=== PATIENT | male | born 1975 | race American Indian/Alaskan Native ===

== ENCOUNTER 2017-04-20 23:15 | Emergency (ER) | payer MEDICAID ==
[2017-04-21 00:06] VITALS: BP 141/101
--- NOTE | 2017-04-21 00:30 | Emergency Department Report ---
ED ENT HPI - General Chief complaint: Dental/Oral Stated complaint: TOOTHACHE Time Seen by Provider: 04/21/17 00:20 Source: patient Mode of arrival: Ambulatory Limitations: No Limitations - History of Present Illness Initial comments: This is a 41-year-old male nontoxic, well nourished in appearance, no acute signs of distress presents to the ED with c/o of acute on chronic toothache. Patient stated that 2 days ago developed toothache again. Patient denies any facial swelling, drooling, fever, chills, nausea, vomiting, headache or stiff neck. Denies hoarseness. Denies any chest pain or shortness of breath. Patient denies any significant past medical history. Allergies includes NSAIDs. MD complaint: tooth pain -: days(s) (2) Location: tooth # (15) 1 - toothache Severity: mild Severity scale (0 -10): 8 Quality: aching Consistency: constant Improves with: none Worsens with: none Associated Symptoms: gum swelling, toothache. denies: fever, cough, pain with swallowing, sore throat, tinnitus, hearing loss, discharge from ear, rhinorrhea - Related Data Home Medications Medication Instructions Recorded Confirmed Last Taken Depakote 0 mg PO DAILY 12/07/15 12/07/15 Unknown Quetiapine Fumarate [SEROquel XR] 150 mg PO QDAY 12/07/15 12/07/15 Unknown hydrOXYzine PAMOATE [Vistaril] 25 mg PO Q6HR PRN 12/07/15 12/07/15 Unknown Previous Rx's Medication Instructions Recorded Last Taken Type HYDROcodone/APAP 5-325 [[place] 1 each PO Q6HR PRN #15 tablet 03/04/15 Unknown Rx 5/325] Lisinopril [Zestril TAB] 20 mg PO QDAY #30 tablet 12/07/15 Unknown Rx Loperamide [Imodium] 2 mg PO Q2HR PRN #20 capsule 12/07/15 Unknown Rx traMADol [Ultram 50 MG tab] 50 mg PO Q6HR PRN #20 tablet 12/07/15 Unknown Rx Acetaminophen [Acetaminophen 8 650 mg PO Q8H PRN #30 tablet.er 04/21/17 Unknown Rx Hour] Amoxicillin/K Clav Tab [Augmentin 1 tab PO Q12HR #20 tab 04/21/17 Unknown Rx 875 mg] Chlorhexidine Mouthwash [Peridex] 15 ml MM BID 10 Days bottle 04/21/17 Unknown Rx Allergies Allergy/AdvReac Type Severity Reaction Status Date / Time ibuprofen [From Motrin] Allergy Itching Verified 11/20/12 15:54 NSAIDS (Non-Steroidal Allergy Itching Verified 10/23/15 00:05 Anti-Inflamma ED Dental HPI - General Chief complaint: Dental/Oral Stated complaint: TOOTHACHE Time Seen by Provider: 04/21/17 00:20 Source: patient Mode of arrival: Ambulatory Limitations: No Limitations - Related Data Home Medications Medication Instructions Recorded Confirmed Last Taken Depakote 0 mg PO DAILY 12/07/15 12/07/15 Unknown Quetiapine Fumarate [SEROquel XR] 150 mg PO QDAY 12/07/15 12/07/15 Unknown hydrOXYzine PAMOATE [Vistaril] 25 mg PO Q6HR PRN 12/07/15 12/07/15 Unknown Previous Rx's Medication Instructions Recorded Last Taken Type HYDROcodone/APAP 5-325 [[place] 1 each PO Q6HR PRN #15 tablet 03/04/15 Unknown Rx 5/325] Lisinopril [Zestril TAB] 20 mg PO QDAY #30 tablet 12/07/15 Unknown Rx Loperamide [Imodium] 2 mg PO Q2HR PRN #20 capsule 12/07/15 Unknown Rx traMADol [Ultram 50 MG tab] 50 mg PO Q6HR PRN #20 tablet 12/07/15 Unknown Rx Acetaminophen [Acetaminophen 8 650 mg PO Q8H PRN #30 tablet.er 04/21/17 Unknown Rx Hour] Amoxicillin/K Clav Tab [Augmentin 1 tab PO Q12HR #20 tab 04/21/17 Unknown Rx 875 mg] Chlorhexidine Mouthwash [Peridex] 15 ml MM BID 10 Days bottle 04/21/17 Unknown Rx Allergies Allergy/AdvReac Type Severity Reaction Status Date / Time ibuprofen [From Motrin] Allergy Itching Verified 11/20/12 15:54 NSAIDS (Non-Steroidal Allergy Itching Verified 10/23/15 00:05 Anti-Inflamma ED Review of Systems ROS: Stated complaint: TOOTHACHE Other details as noted in HPI Constitutional: denies: chills, fever Eyes: denies: eye pain, eye discharge, vision change ENT: dental pain. denies: ear pain, throat pain Respiratory: denies: cough, shortness of breath, wheezing Cardiovascular: denies: chest pain, palpitations Endocrine: no symptoms reported Gastrointestinal: denies: abdominal pain, nausea, diarrhea Genitourinary: denies: urgency, dysuria Musculoskeletal: denies: back pain, joint swelling, arthralgia Skin: denies: rash, lesions Neurological: denies: headache, weakness, paresthesias Psychiatric: denies: anxiety, depression Hematological/Lymphatic: denies: easy bleeding, easy bruising ED Past Medical Hx - Past Medical History Previous Medical History?: Yes Hx Hypertension: Yes Hx Congestive Heart Failure: No Hx Diabetes: No Hx Deep Vein Thrombosis: (Unknown) Hx Psychiatric Treatment: Yes (Bipolar, Schizophrenia, Anxiety) Hx Asthma: No Hx COPD: No Hx HIV: No Additional medical history: Hernia; back pain - Surgical History Past Surgical History?: Yes Hx Pacemaker: No Hx Internal Defibrillator: No Hx Appendectomy: Yes Additional Surgical History: perforated bowel repair October 2014; fx R hip 2011 - Social History Smoking Status: Never Smoker Substance Use Type: None - Medications Home Medications: Home Medications Medication Instructions Recorded Confirmed Last Taken Type HYDROcodone/APAP 5-325 [[place] 1 each PO Q6HR PRN #15 tablet 03/04/15 12/07/15 Unknown Rx 5/325] Depakote 0 mg PO DAILY 12/07/15 12/07/15 Unknown History Lisinopril [Zestril TAB] 20 mg PO QDAY #30 tablet 12/07/15 Unknown Rx Loperamide [Imodium] 2 mg PO Q2HR PRN #20 capsule 12/07/15 Unknown Rx Quetiapine Fumarate [SEROquel XR] 150 mg PO QDAY 12/07/15 12/07/15 Unknown History hydrOXYzine PAMOATE [Vistaril] 25 mg PO Q6HR PRN 12/07/15 12/07/15 Unknown History traMADol [Ultram 50 MG tab] 50 mg PO Q6HR PRN #20 tablet 12/07/15 Unknown Rx Acetaminophen [Acetaminophen 8 650 mg PO Q8H PRN #30 tablet.er 02/22/18 Unknown Rx Hour] Amoxicillin/K Clav Tab [Augmentin 1 tab PO Q12HR #20 tab 04/21/17 Unknown Rx 875 mg] Chlorhexidine Mouthwash [Peridex] 15 ml MM BID 10 Days bottle 04/21/17 Unknown Rx ED Physical Exam - General Limitations: No Limitations General appearance: alert, in no apparent distress - Head Head exam: Present: atraumatic, normocephalic - Eye Eye exam: Present: normal appearance Pupils: Present: normal accommodation - ENT ENT exam: Present: normal orophraynx, mucous membranes moist, TM's normal bilaterally, normal external ear exam - Expanded ENT Exam Expanded Ear exam: Present: normal external inspection Mouth exam: Present: normal external inspection, tongue normal. Absent: drooling, trismus, muffled voice, tongue elevation, laceration Teeth exam: Present: dental caries, fractured tooth # (15), dental tenderness # (15), gingival enlargement, other (No facial swelling or abscess noted. ) Throat exam: Positive: normal inspection, other (Uvula midline.). Negative: tonsillar erythema, tonsillomegaly, tonsillar exudate, R peritonsillar mass, L peritonsillar mass - Neck Neck exam: Present: normal inspection, full ROM. Absent: tenderness, meningismus, lymphadenopathy, thyromegaly - Respiratory Respiratory exam: Present: normal lung sounds bilaterally. Absent: respiratory distress, wheezes, rales, rhonchi, stridor, chest wall tenderness, accessory muscle use, decreased breath sounds, prolonged expiratory - Cardiovascular Cardiovascular Exam: Present: regular rate, normal rhythm, normal heart sounds. Absent: irregular rhythm, systolic murmur, diastolic murmur, rubs, gallop - GI/Abdominal GI/Abdominal exam: Present: soft, normal bowel sounds. Absent: distended, tenderness, guarding, rebound, rigid, diminished bowel sounds - Rectal Rectal exam: Present: deferred - Extremities Exam Extremities exam: Present: normal inspection - Back Exam Back exam: Present: normal inspection - Neurological Exam Neurological exam: Present: alert, oriented X3 - Psychiatric Psychiatric exam: Present: normal affect, normal mood - Skin Skin exam: Present: warm, dry, intact, normal color. Absent: rash ED Course Vital Signs 04/21/17 00:02 Temperature 98 F Pulse Rate 97 H Respiratory 18 Rate Blood Pressure 141/101 O2 Sat by Pulse 98 Oximetry - Reevaluation(s) Reevaluation #1: 04/21/17 00:28 Patient is speaking in full sentences with no signs of distress noted. Critical care attestation.: If time is entered above; I have spent that time in minutes in the direct care of this critically ill patient, excluding procedure time. ED Disposition Clinical Impression: Dental caries, Gingivitis Disposition: - TO HOME OR SELFCARE Is pt being admited?: No Does the pt Need Aspirin: No Condition: Stable Additional Instructions: Follow-up with a dentist in 3-5 days or if symptoms worsen and continue return to emergency room as soon as possible. Prescriptions: Acetaminophen [Acetaminophen 8 Hour] 650 mg PO Q8H PRN #30 tablet.er PRN Reason: Pain Amoxicillin/K Clav Tab [Augmentin 875 mg] 1 tab PO Q12HR #20 tab Chlorhexidine Mouthwash [Peridex] 15 ml MM BID 10 Days bottle Referrals: LEDY ARMAS MD [Primary Care Provider] - 3-5 Days [facility] [Outside] - 3-5 Days Forms: Work/School Release Form(ED)
[2017-04-21] MEDS ORDERED: TYLENOL PO ONE (00:43)
== END 2017-04-21 01:00 | disposition home or self-care (01) ==
LOC: ED 23:15
DX: K02.9 Dental caries, unspecified (principal); K05.10 Chronic gingivitis, plaque induced; I10 Essential (primary) hypertension; F31.9 Bipolar disorder, unspecified; F20.9 Schizophrenia, unspecified; F41.9 Anxiety disorder, unspecified; Z90.49 Acquired absence of other specified parts of digestive tract
CPT/HCPCS: 99282

== ENCOUNTER 2017-06-12 12:53 | Emergency (ER) | payer MEDICAID ==
[2017-06-12 13:11] VITALS: BP 151/101
--- NOTE | 2017-06-12 15:01 | Emergency Department Report ---
ED Back Pain/Injury HPI - General Chief Complaint: Extremity Injury, Upper Stated Complaint: RIB PAIN Time Seen by Provider: 06/12/17 14:47 Source: patient Limitations: No Limitations - History of Present Illness Initial Comments: This is a 41 y.o. male that presents with bilateral flank pain that is radiating to ribs bilateral for 4 days. Patient reports taking medication prescribed from therapist but nothing helped. States pain is 8/10 on pain scale and radiates from bilateral flanks to ribs and intermittent. States pain is sharp with movement it is worse. He feels better when propped on multiple pillows. Denies recent injury, fever, frequency, urgency, or exposure to STD. MD Complaint: back pain -: days(s) (4) Similar Symptoms Previously: No Place: home Radiation: flank (Bilateral) Severity: moderate Severity scale (0 -10): 8 Quality: sharp, aching Consistency: intermittent Improves With: immobilization, sitting upright Worsens With: movement Context: unknown Associated Symptoms: denies: confusion, weakness, chest pain, numbness, difficulty walking, cough, difficulty urinating, diaphoresis, incontinence, fever/chills, constipation, headaches, abdominal pain, loss of appetite, malaise , nausea/vomiting, rash, seizure, shortness of breath, syncope - Related Data Home Medications Medication Instructions Recorded Confirmed Last Taken Depakote 0 mg PO DAILY 12/07/15 12/07/15 Unknown Quetiapine Fumarate [SEROquel XR] 150 mg PO QDAY 12/07/15 12/07/15 Unknown hydrOXYzine PAMOATE [Vistaril] 25 mg PO Q6HR PRN 12/07/15 12/07/15 Unknown Previous Rx's Medication Instructions Recorded Last Taken Type HYDROcodone/APAP 5-325 [[place] 1 each PO Q6HR PRN #15 tablet 03/04/15 Unknown Rx 5/325] Lisinopril [Zestril TAB] 20 mg PO QDAY #30 tablet 12/07/15 Unknown Rx Loperamide [Imodium] 2 mg PO Q2HR PRN #20 capsule 12/07/15 Unknown Rx traMADol [Ultram 50 MG tab] 50 mg PO Q6HR PRN #20 tablet 12/07/15 Unknown Rx Acetaminophen [Acetaminophen 8 650 mg PO Q8H PRN #30 tablet.er 04/21/17 Unknown Rx Hour] Amoxicillin/K Clav Tab [Augmentin 1 tab PO Q12HR #20 tab 04/21/17 Unknown Rx 875 mg] Chlorhexidine Mouthwash [Peridex] 15 ml MM BID 10 Days bottle 04/21/17 Unknown Rx tiZANidine [Zanaflex] 4 mg PO TID PRN #20 tablet 06/12/17 Unknown Rx traMADol [Ultram 50 MG tab] 50 mg PO Q6HR PRN #15 tablet 06/12/17 Unknown Rx Allergies Allergy/AdvReac Type Severity Reaction Status Date / Time ibuprofen [From Motrin] Allergy Itching Verified 11/20/12 15:54 NSAIDS (Non-Steroidal Allergy Itching Verified 10/23/15 00:05 Anti-Inflamma ED Review of Systems ROS: Stated complaint: RIB PAIN Other details as noted in HPI Constitutional: denies: chills, fever Respiratory: denies: cough, shortness of breath, wheezing Cardiovascular: denies: chest pain, palpitations Gastrointestinal: denies: abdominal pain, nausea, diarrhea Genitourinary: denies: urgency, dysuria, frequency Musculoskeletal: back pain (bilateral flank pain radiating to ribs). denies: joint swelling, arthralgia Neurological: denies: headache, weakness, paresthesias Psychiatric: denies: anxiety, depression ED Past Medical Hx - Past Medical History Hernia; back pain Family history: no significant family history ED Back Pain Physical Exam - Exam General: Vital signs noted. No distress. Alert and acting appropriately. Back/Abdomen: Yes Flank Tenderness (bilateral), No Abdominal Tenderness, No Perithoracic Tenderness, No Perilumbar Tenderness, No Sacroiliac Tenderness, No Straight Leg Raise Pain Neuro: Yes Normal Sensation, Yes Normal DTR's, Yes Normal Gait, No Motor Weakness ED Course Vital Signs 06/12/17 13:09 Temperature 97.9 F Pulse Rate 72 Respiratory 18 Rate Blood Pressure 151/101 Ed Back Pain Tests - Tests Tests: Normal UA ED Medical Decision Making - Medical Decision Making This is a 41 y.o. male presents with bilateral flank pain that is radiating to ribs. History of chronic back pain. He was seeing pain management but have not found a place to f/u with in [facility]. Patient was examined by me. Obtained UA, normal results. Physical findings susceptible of muscle strain of bilateral muscles. No radiograph ordered. Patient informed of results. Plan discussed with patient to discharge home and treat outpatient. He agrees with ER plan. Patient discharged home in stable condition. Start ibuprofen and tizanidine. Follow up with PCP in 2-3 days for referral to pain management. Critical care attestation.: If time is entered above; I have spent that time in minutes in the direct care of this critically ill patient, excluding procedure time. ED Disposition Clinical Impression: Strain of muscle and tendon of back wall of thorax, initial encounter Disposition: TO HOME OR SELFCARE Is pt being admited?: No Does the pt Need Aspirin: No Condition: Stable Instructions: Muscle Strain (ED) Additional Instructions: Rest Use ice or heat on affected area for 20 minutes and off for 2 hours. Take pain medication as needed for pain. Don't drive or operate heavy machinery while taking muscle relaxers because they may cause drowsiness. Follow up with Primary Care Provider in 2-3 days. Prescriptions: tiZANidine [Zanaflex] 4 mg PO TID PRN #20 tablet PRN Reason: Muscle Spasm traMADol [Ultram 50 MG tab] 50 mg PO Q6HR PRN #15 tablet PRN Reason: Pain Referrals: [facility] [Outside] - 3-5 Days [facility] [Outside] - 3-5 Days [facility] [Outside] - 3-5 Days Time of Disposition: 16:04 Print Language: CROATIAN
[2017-06-12 15:28] LABS: Bilirubin,Urine NEG (Negative); Blood,Urine NEG (Negative); Color,Urine Straw (Yellow); Protein,Urine <15 mg/dL mg/dL (Negative); Urobilinogen,Urine < 2.0 mg/dL (<2.0); WBC,Urine < 1.0 /HPF (0.0-6.0)
== END 2017-06-12 16:55 | disposition home or self-care (01) ==
LOC: ED 12:53
DX: S29.012A Strain of muscle and tendon of back wall of thorax, initial encounter (principal); Z88.6 Allergy status to analgesic agent; Z88.8 Allergy status to other drugs, medicaments and biological substances; X58.XXXA Exposure to other specified factors, initial encounter; Y93.89 Activity, other specified; Y92.89 Other specified places as the place of occurrence of the external cause; Y99.8 Other external cause status
CPT/HCPCS: 81001; 99283

== ENCOUNTER 2018-12-13 15:38 | Emergency (ER) | payer MEDICAID ==
--- NOTE | 2018-12-13 16:13 | Emergency Department Report ---
Blank Doc - Documentation Documentation: 43-year-old male that presents with dysuria and dental pain. This initial assessment/diagnostic orders/clinical plan/treatment(s) is/are subject to change based on patient's health status, clinical progression and re- assessment by fellow clinical providers in the ED. Further treatment and workup at subsequent clinical providers discretion. Patient/guardians urged not to elope from the ED as their condition may be serious if not clinically assessed and managed. Initial orders include: 1- Patient sent to [facility] for further evaluation and treatment 2- UA/GC
[2018-12-13 17:57] LABS: Bilirubin,Urine NEG (Negative); Blood,Urine NEG (Negative); Color,Urine Yellow (Yellow); Mucus,Urine FEW /HPF; Protein,Urine <15 mg/dL mg/dL (Negative); Urobilinogen,Urine < 2.0 mg/dL (<2.0)
[2018-12-13 17:59] LABS: WBC,Urine < 1.0 /HPF (0.0-6.0)
--- NOTE | 2018-12-13 20:20 | Emergency Department Report ---
ED General Adult HPI - General Chief complaint: Dental/Oral Stated complaint: TOOTHACHE/DIFFICULTY URINATING Time Seen by Provider: 12/13/18 15:43 Source: patient Mode of arrival: Ambulatory Limitations: No Limitations - History of Present Illness Initial comments: Patient is a 43-year-old male presents emergency room with complaints of left upper dental pain that began 4 days ago. He states he has not seen a dentist in a year and last time had had 2 teeth pulled. He denies any fever, nausea, vomiting, diarrhea, chills. denies any facial swelling. Patient states that he also presents the emergency department with complaints of a "funny feeling while urinating." States that he just wants to have routine STD testing. He denies any penile discharge, testicular pain, edema, abdominal pain, urinary retention, lesions/blisters, any other symptoms. He states he has a past medical history of chronic back pain. - Related Data Home Medications Medication Instructions Recorded Confirmed Last Taken Depakote 0 mg PO DAILY 12/07/15 12/07/15 Unknown Quetiapine Fumarate [SEROquel XR] 150 mg PO QDAY 12/07/15 12/07/15 Unknown hydrOXYzine PAMOATE [Vistaril] 25 mg PO Q6HR PRN 12/07/15 12/07/15 Unknown Previous Rx's Medication Instructions Recorded Last Taken Type HYDROcodone/APAP 5-325 [[place] 1 each PO Q6HR PRN #15 tablet 03/04/15 Unknown Rx 5/325] Lisinopril [Zestril TAB] 20 mg PO QDAY #30 tablet 12/07/15 Unknown Rx Loperamide [Imodium] 2 mg PO Q2HR PRN #20 capsule 12/07/15 Unknown Rx traMADol [Ultram 50 MG tab] 50 mg PO Q6HR PRN #20 tablet 12/07/15 Unknown Rx Acetaminophen [Acetaminophen 8 650 mg PO Q8H PRN #30 tablet.er 04/21/17 Unknown Rx Hour] Amoxicillin/K Clav Tab [Augmentin 1 tab PO Q12HR #20 tab 04/21/17 Unknown Rx 875 mg] Chlorhexidine Mouthwash [Peridex] 15 ml MM BID 10 Days bottle 04/21/17 Unknown Rx tiZANidine [Zanaflex 4mg TAB] 4 mg PO TID PRN #20 tablet 06/12/17 Unknown Rx traMADol [Ultram 50 MG tab] 50 mg PO Q6HR PRN #15 tablet 06/12/17 Unknown Rx HYDROcodone/APAP 5-325 [[place] 1 each PO Q8H #10 tablet 12/24/17 Unknown Rx 5-325 mg TAB] Penicillin Vk [Veetids TAB] 250 mg PO QID #28 tablet 12/24/17 Unknown Rx Acetaminophen [Acetaminophen 8 650 mg PO Q8HR PRN #14 tablet.er 12/13/18 Unknown Rx Hour] Penicillin Vk [Veetids TAB] 500 mg PO QID 7 Days #56 tablet 12/13/18 Unknown Rx Allergies Allergy/AdvReac Type Severity Reaction Status Date / Time ibuprofen [From Motrin] Allergy Itching Verified 11/20/12 15:54 NSAIDS (Non-Steroidal Allergy Itching Verified 10/23/15 00:05 Anti-Inflamma ED Review of Systems ROS: Stated complaint: TOOTHACHE/DIFFICULTY URINATING Other details as noted in HPI Comment: All other systems reviewed and negative ED Past Medical Hx - Past Medical History Previous Medical History?: Yes Hx Hypertension: Yes Hx Congestive Heart Failure: No Hx Diabetes: No Hx Deep Vein Thrombosis: (Unknown) Hx Psychiatric Treatment: Yes (Bipolar, Schizophrenia, Anxiety) Hx Asthma: No Hx COPD: No Hx HIV: No Additional medical history: Hernia; back pain - Surgical History Past Surgical History?: Yes Hx Pacemaker: No Hx Internal Defibrillator: No Hx Appendectomy: Yes Additional Surgical History: perforated bowel repair October 2014; fx R hip. facial plates placed after jaw fx - Social History Smoking Status: Current Every Day Smoker Substance Use Type: Alcohol - Medications Home Medications: Home Medications Medication Instructions Recorded Confirmed Last Taken Type HYDROcodone/APAP 5-325 [[place] 1 each PO Q6HR PRN #15 tablet 03/04/15 12/07/15 Unknown Rx 5/325] Depakote 0 mg PO DAILY 12/07/15 12/07/15 Unknown History Lisinopril [Zestril TAB] 20 mg PO QDAY #30 tablet 12/07/15 Unknown Rx Loperamide [Imodium] 2 mg PO Q2HR PRN #20 capsule 12/07/15 Unknown Rx Quetiapine Fumarate [SEROquel XR] 150 mg PO QDAY 12/07/15 12/07/15 Unknown History hydrOXYzine PAMOATE [Vistaril] 25 mg PO Q6HR PRN 12/07/15 12/07/15 Unknown History traMADol [Ultram 50 MG tab] 50 mg PO Q6HR PRN #20 tablet 12/07/15 Unknown Rx Acetaminophen [Acetaminophen 8 650 mg PO Q8H PRN #30 tablet.er 04/21/17 Unknown Rx Hour] Amoxicillin/K Clav Tab [Augmentin 1 tab PO Q12HR #20 tab 04/21/17 Unknown Rx 875 mg] Chlorhexidine Mouthwash [Peridex] 15 ml MM BID 10 Days bottle 04/21/17 Unknown Rx tiZANidine [Zanaflex 4mg TAB] 4 mg PO TID PRN #20 tablet 06/12/17 Unknown Rx traMADol [Ultram 50 MG tab] 50 mg PO Q6HR PRN #15 tablet 06/12/17 Unknown Rx HYDROcodone/APAP 5-325 [[place] 1 each PO Q8H #10 tablet 12/24/17 Unknown Rx 5-325 mg TAB] Penicillin Vk [Veetids TAB] 250 mg PO QID #28 tablet 12/24/17 Unknown Rx Acetaminophen [Acetaminophen 8 650 mg PO Q8HR PRN #14 tablet.er 12/13/18 Unknown Rx Hour] Penicillin Vk [Veetids TAB] 500 mg PO QID 7 Days #56 tablet 12/13/18 Unknown Rx ED Physical Exam - General Limitations: No Limitations General appearance: alert, in no apparent distress - Head Head exam: Present: atraumatic, normocephalic - Eye Eye exam: Present: normal appearance, PERRL, EOMI - ENT ENT exam: Present: normal orophraynx, mucous membranes moist, other (very poor dentition, several missing teeth, cracked tooth present to the left upper side with small area of edema to the gum, no dental abscess, no fluctuance, no facial cellulitis) - Respiratory Respiratory exam: Present: normal lung sounds bilaterally. Absent: respiratory distress, wheezes, rales, rhonchi, stridor, chest wall tenderness, accessory muscle use, decreased breath sounds, prolonged expiratory - Cardiovascular Cardiovascular Exam: Present: regular rate, normal rhythm, normal heart sounds. Absent: systolic murmur, diastolic murmur, rubs, gallop - Neurological Exam Neurological exam: Present: alert, oriented X3 - Psychiatric Psychiatric exam: Present: normal affect, normal mood - Skin Skin exam: Present: warm, dry, intact ED Course Vital Signs 12/13/18 12/13/18 15:42 20:33 Temperature 97.9 F Pulse Rate 87 80 Respiratory 16 16 Rate Blood Pressure 138/96 Blood Pressure 156/107 [Left] O2 Sat by Pulse 98 100 Oximetry ED Medical Decision Making - Medical Decision Making Patient is a 43-year-old male presents emergency room with complaints of left upper dental pain that began 4 days ago. He states he has not seen a dentist in a year and last time had had 2 teeth pulled. He denies any fever, nausea, vomiting, diarrhea, chills. denies any facial swelling. Patient states that he also presents the emergency department with complaints of a "funny feeling while urinating." States that he just wants to have routine STD testing. He denies any penile discharge, testicular pain, edema, abdominal pain, urinary retention, lesions/blisters, any other symptoms. He states he has a past medical history of chronic back pain. VSS. on exam: very poor dentition, several missing teeth, cracked tooth present to the left upper side with small area of edema to the gum, no dental abscess, no fluctuance, no facial cellulitis, no dental abscess at this time, appears to be early dental infection. pt placed on abx and given prescription for tylenol. advised to take medication as prescribed. UA is normal no signs of UTI. pt will be referred to the health department or PCP for STD panel as there is no emergent need for STD testing, no abd pain, no testicular pain/edema, no fever chills, no N/V. advised pt to Please take medication as prescribed. Please follow-up with a dentist in the next 2-3 days. it is very important you follow-up with a dentist for permanent solution. given a list of community dental clinics. Please follow-up with the [facility] or primary care clinic for a full STD panel. return to the emergency room for any new or worsening symptoms. - Differential Diagnosis dental infection, dental abscess, gingivitis, peridonitis, cracked tooth Critical care attestation.: If time is entered above; I have spent that time in minutes in the direct care of this critically ill patient, excluding procedure time. ED Disposition Clinical Impression: Concern about STD in male without diagnosis, Cracked tooth, Dental infection Disposition: DC-01 TO HOME OR SELFCARE Is pt being admited?: No Does the pt Need Aspirin: No Condition: Stable Instructions: Sexually Transmitted Diseases (ED), Safe Sex (ED), Dental Caries (ED) Additional Instructions: Please take medication as prescribed. Please follow-up with a dentist in the next 2-3 days. it is very important you follow-up with a dentist for permanent solution. given a list of community dental clinics. Please follow-up with the [facility] or primary care clinic for a full STD panel. return to the emergency room for any new or worsening symptoms. Prescriptions: Acetaminophen [Acetaminophen 8 Hour] 650 mg PO Q8HR PRN #14 tablet.er PRN Reason: pain Penicillin Vk [Veetids TAB] 500 mg PO QID 7 Days #56 tablet Referrals: [facility] [Outside] - 2-3 Days [facility] [Outside] - 2-3 Days Forms: Work/School Release Form(ED) Time of Disposition: 20:19 Print Language: DOMINICAN
[2018-12-13 20:33] VITALS: BP 156/107
== END 2018-12-13 20:33 | disposition home or self-care (01) ==
LOC: ED 15:38
DX: K03.81 Cracked tooth (principal); K04.7 Periapical abscess without sinus; R39.198 Other difficulties with micturition; I10 Essential (primary) hypertension; F31.9 Bipolar disorder, unspecified; F20.9 Schizophrenia, unspecified; F41.9 Anxiety disorder, unspecified; F17.200 Nicotine dependence, unspecified, uncomplicated; Z71.1 Person with feared health complaint in whom no diagnosis is made; Z79.899 Other long term (current) drug therapy; Z90.89 Acquired absence of other organs; Z88.6 Allergy status to analgesic agent
CPT/HCPCS: 81001; 87086

== ENCOUNTER 2019-04-16 15:09 | Emergency (ER) | payer MEDICAID ==
--- NOTE | 2019-04-16 16:03 | Emergency Department Report ---
ED Psych HPI - General Chief Complaint: Psych Stated Complaint: SUICIDAL Time Seen by Provider: 04/16/19 15:45 Source: patient, EMS Mode of arrival: Stretcher - History of Present Illness Initial Comments: Patient is a 43-year-old male presents emergency room with complaints of a "nervous breakdown and depression." He states that today he "blacked out mentally" and he was sitting there with a knife in his hand. He states that he has done this before and scratched himself all over. He denies actually cutting himself today. He denies any homicidal ideations. He endorses auditory and visual hallucinations but states they are nonthreatening. He states he has been to a psychiatric facility in the past. Patient has a past medical history of chronic pain, hypertension, hyperlipidemia, depression, bipolar, schizophrenia. He has an allergy to NSAIDs. - Related Data Home Medications Medication Instructions Recorded Confirmed Last Taken Depakote 0 mg PO DAILY 12/07/15 12/07/15 Unknown Quetiapine Fumarate [SEROquel XR] 150 mg PO QDAY 12/07/15 12/07/15 Unknown hydrOXYzine PAMOATE [Vistaril] 25 mg PO Q6HR PRN 12/07/15 12/07/15 Unknown Previous Rx's Medication Instructions Recorded Last Taken Type HYDROcodone/APAP 5-325 [[place] 1 each PO Q6HR PRN #15 tablet 03/04/15 Unknown Rx 5/325] Loperamide [Imodium] 2 mg PO Q2HR PRN #20 capsule 12/07/15 Unknown Rx lisinopriL [Zestril TAB] 20 mg PO QDAY #30 tablet 12/07/15 Unknown Rx traMADoL [Ultram 50 MG tab] 50 mg PO Q6HR PRN #20 tablet 12/07/15 Unknown Rx Acetaminophen [Acetaminophen 8 650 mg PO Q8H PRN #30 tablet.er 04/21/17 Unknown Rx Hour] Amoxicillin/K Clav Tab [Augmentin 1 tab PO Q12HR #20 tab 04/21/17 Unknown Rx 875 mg] Chlorhexidine Mouthwash [Peridex] 15 ml MM BID 10 Days bottle 04/21/17 Unknown Rx tiZANidine [Zanaflex 4mg TAB] 4 mg PO TID PRN #20 tablet 06/12/17 Unknown Rx traMADoL [Ultram 50 MG tab] 50 mg PO Q6HR PRN #15 tablet 06/12/17 Unknown Rx HYDROcodone/APAP 5-325 [[place] 1 each PO Q8H #10 tablet 12/24/17 Unknown Rx 5-325 mg TAB] Penicillin Vk [Veetids TAB] 250 mg PO QID #28 tablet 12/24/17 Unknown Rx Acetaminophen [Acetaminophen 8 650 mg PO Q8HR PRN #14 tablet.er 12/13/18 Unknown Rx Hour] Penicillin Vk [Veetids TAB] 500 mg PO QID 7 Days #56 tablet 12/13/18 Unknown Rx Allergies Allergy/AdvReac Type Severity Reaction Status Date / Time aspirin Allergy Itching Verified 04/16/19 15:32 ibuprofen [From Motrin] Allergy Itching Verified 11/20/12 15:54 NSAIDS (Non-Steroidal Allergy Itching Verified 10/23/15 00:05 Anti-Inflamma ED Review of Systems ROS: Stated complaint: SUICIDAL Other details as noted in HPI Comment: All other systems reviewed and negative ED Past Medical Hx - Past Medical History Hx Hypertension: Yes Hx Congestive Heart Failure: No Hx Diabetes: No Hx Deep Vein Thrombosis: (Unknown) Hx Psychiatric Treatment: Yes (Bipolar, Schizophrenia, Anxiety) Hx Asthma: No Hx COPD: No Hx HIV: No Additional medical history: Hernia; back pain - Surgical History Hx Pacemaker: No Hx Internal Defibrillator: No Hx Appendectomy: Yes Additional Surgical History: perforated bowel repair October 2014; fx R hip. facial plates placed after jaw fx - Social History Smoking Status: Current Every Day Smoker Substance Use Type: Alcohol - Medications Home Medications: Home Medications Medication Instructions Recorded Confirmed Last Taken Type HYDROcodone/APAP 5-325 [[place] 1 each PO Q6HR PRN #15 tablet 03/04/15 12/07/15 Unknown Rx 5/325] Depakote 0 mg PO DAILY 12/07/15 12/07/15 Unknown History Loperamide [Imodium] 2 mg PO Q2HR PRN #20 capsule 12/07/15 Unknown Rx Quetiapine Fumarate [SEROquel XR] 150 mg PO QDAY 12/07/15 12/07/15 Unknown History hydrOXYzine PAMOATE [Vistaril] 25 mg PO Q6HR PRN 12/07/15 12/07/15 Unknown History lisinopriL [Zestril TAB] 20 mg PO QDAY #30 tablet 12/07/15 Unknown Rx traMADoL [Ultram 50 MG tab] 50 mg PO Q6HR PRN #20 tablet 12/07/15 Unknown Rx Acetaminophen [Acetaminophen 8 650 mg PO Q8H PRN #30 tablet.er 04/21/17 Unknown Rx Hour] Amoxicillin/K Clav Tab [Augmentin 1 tab PO Q12HR #20 tab 04/21/17 Unknown Rx 875 mg] Chlorhexidine Mouthwash [Peridex] 15 ml MM BID 10 Days bottle 04/21/17 Unknown Rx tiZANidine [Zanaflex 4mg TAB] 4 mg PO TID PRN #20 tablet 06/12/17 Unknown Rx traMADoL [Ultram 50 MG tab] 50 mg PO Q6HR PRN #15 tablet 06/12/17 Unknown Rx HYDROcodone/APAP 5-325 [[place] 1 each PO Q8H #10 tablet 12/24/17 Unknown Rx 5-325 mg TAB] Penicillin Vk [Veetids TAB] 250 mg PO QID #28 tablet 12/24/17 Unknown Rx Acetaminophen [Acetaminophen 8 650 mg PO Q8HR PRN #14 tablet.er 12/13/18 Unknown Rx Hour] Penicillin Vk [Veetids TAB] 500 mg PO QID 7 Days #56 tablet 12/13/18 Unknown Rx ED Physical Exam - General Limitations: No Limitations General appearance: alert, in no apparent distress - Head Head exam: Present: atraumatic, normocephalic - Eye Eye exam: Present: normal appearance - ENT ENT exam: Present: mucous membranes moist - Respiratory Respiratory exam: Present: normal lung sounds bilaterally. Absent: respiratory distress, wheezes, rales, rhonchi, stridor, chest wall tenderness, accessory muscle use, decreased breath sounds, prolonged expiratory - Cardiovascular Cardiovascular Exam: Present: regular rate, normal rhythm, normal heart sounds. Absent: systolic murmur, diastolic murmur, rubs, gallop - Neurological Exam Neurological exam: Present: alert, oriented X3 - Psychiatric Psychiatric exam: Present: normal affect, normal mood - Skin Skin exam: Present: warm, dry, intact ED Course Vital Signs 04/16/19 04/16/19 15:26 16:34 Temperature 98.6 F Pulse Rate 108 H Blood Pressure 130/94 O2 Sat by Pulse 99 Oximetry ED Medical Decision Making - Lab Data Result diagrams: 04/16/19 16:32 02/17/20 16:32 - Medical Decision Making 6:00 PM signed out to MONIQUE Hanson, pending UA/UDS for medical clearance Critical care attestation.: If time is entered above; I have spent that time in minutes in the direct care of this critically ill patient, excluding procedure time. ED Disposition Condition: Stable
[2019-04-16 16:34] VITALS: BP 130/94
[2019-04-16 17:11] LABS: Basophils % (Auto) 0.7 % (0.0-1.8); Eosinophils % (Auto) 0.9 % (0.0-4.3); Hematocrit 40.1 % (35.5-45.6); Hemoglobin 13.6 gm/dl (11.8-15.2); Lymphocytes # (Auto) 1.6 K/mm3 (1.2-5.4); Lymphocytes % (Auto) 30.8 % (13.4-35.0); Mean Corpuscular HGB Conc 34 % (32-34); Mean Corpuscular Volume 89 fl (84-94); Monocytes # (Auto) 0.5 K/mm3 (0.0-0.8); Monocytes % (Auto) 9.1 % (0.0-7.3); Platelet Count 245 K/mm3 (140-440); Red Blood Count 4.52 M/mm3 (3.65-5.03); Red Cell Distribution Width 13.9 % (13.2-15.2)
[2019-04-16 17:30] LABS: Alanine Aminotransferase 38 units/L (7-56); Albumin 4.6 g/dL (3.9-5); BUN/Creatinine Ratio 12; Blood Urea Nitrogen 16 mg/dL (9-20); Calcium 9.8 mg/dL (8.4-10.2); Hemolysis Index 5
[2019-04-16] MEDS ORDERED: SODIUM CHLORIDE 0.9% 1000 ML 1,000 ML IV ONE (17:32)
[2019-04-16 18:31] LABS: Mucus,Urine FEW /HPF
[2019-04-16 18:37] LABS: Bilirubin,Urine Negative (Negative); Color,Urine Straw (Yellow)
[2019-04-16 18:38] LABS: Amphetamine Screen,Urine PRESUMPTIVE NEGATIVE; Blood,Urine Negative (Negative); Cannabinoid Screen,Urine PRESUMPTIVE NEGATIVE; Methadone Screen,Urine PRESUMPTIVE NEGATIVE; Opiate Screen,Urine PRESUMPTIVE NEGATIVE
[2019-04-16 18:49] LABS: Benzodiazepines Screen,Urine PRESUMPTIVE POSITIVE; Cocaine Screen,Urine PRESUMPTIVE POSITIVE
[2019-04-16] MEDS ORDERED: methylPREDNISolone Sod Succinate 125 MG/2 ML INJ IV ONE (18:55)
== END 2019-04-16 20:58 | disposition home or self-care (01) ==
LOC: ED 15:09
DX: F20.89 Other schizophrenia (principal); F31.9 Bipolar disorder, unspecified; I10 Essential (primary) hypertension; F17.200 Nicotine dependence, unspecified, uncomplicated; Z98.890 Other specified postprocedural states; Z79.899 Other long term (current) drug therapy; Z88.8 Allergy status to other drugs, medicaments and biological substances; Z88.6 Allergy status to analgesic agent
CPT/HCPCS: 36415; 80053; 80307; 81001; 82550; 85025; 96374; 99284; J2930; J7030; 80320; G0480

== ENCOUNTER 2020-03-26 11:19 | Observation (INO) | payer MEDICAID ==
--- NOTE | 2020-03-26 11:50 | Emergency Department Report ---
ED General Adult HPI - General Chief complaint: Neuro Symptoms/Deficit Stated complaint: AMS Time Seen by Provider: 03/26/20 11:48 Source: patient, EMS Mode of arrival: Stretcher Limitations: Altered Mental Status - History of Present Illness Initial comments: Patient is a 44-year-old male with past psychiatric history who presents to the emergency department with altered mental status noticed by family shortly after taking his medicine this morning. Patient notes he was his normal self 7:45 AM. Patient presents as code stroke, consequently required my immediate attention. - Related Data Home Medications Medication Instructions Recorded Confirmed Last Taken Depakote 0 mg PO DAILY 12/07/15 12/07/15 Unknown Quetiapine Fumarate [SEROquel XR] 150 mg PO QDAY 12/07/15 12/07/15 Unknown hydrOXYzine PAMOATE [Vistaril] 25 mg PO Q6HR PRN 12/07/15 12/07/15 Unknown Previous Rx's Medication Instructions Recorded Last Taken Type HYDROcodone/APAP 5-325 [[place] 1 each PO Q6HR PRN #15 tablet 03/04/15 Unknown Rx 5/325] Loperamide [Imodium] 2 mg PO Q2HR PRN #20 capsule 12/07/15 Unknown Rx lisinopriL [Zestril TAB] 20 mg PO QDAY #30 tablet 12/07/15 Unknown Rx traMADoL [Ultram 50 MG tab] 50 mg PO Q6HR PRN #20 tablet 12/07/15 Unknown Rx Acetaminophen [Acetaminophen 8 650 mg PO Q8H PRN #30 tablet.er 04/21/17 Unknown Rx Hour] Amoxicillin/K Clav Tab [Augmentin 1 tab PO Q12HR #20 tab 04/21/17 Unknown Rx 875 mg] Chlorhexidine Mouthwash [Peridex] 15 ml MM BID 10 Days bottle 04/21/17 Unknown Rx tiZANidine [Zanaflex 4mg TAB] 4 mg PO TID PRN #20 tablet 06/12/17 Unknown Rx traMADoL [Ultram 50 MG tab] 50 mg PO Q6HR PRN #15 tablet 06/12/17 Unknown Rx HYDROcodone/APAP 5-325 [[place] 1 each PO Q8H #10 tablet 12/24/17 Unknown Rx 5-325 mg TAB] Penicillin Vk [Veetids TAB] 250 mg PO QID #28 tablet 12/24/17 Unknown Rx Acetaminophen [Acetaminophen 8 650 mg PO Q8HR PRN #14 tablet.er 12/13/18 Unknown Rx Hour] Penicillin Vk [Veetids TAB] 500 mg PO QID 7 Days #56 tablet 12/13/18 Unknown Rx Allergies Allergy/AdvReac Type Severity Reaction Status Date / Time aspirin Allergy Itching Verified 04/16/19 15:32 ibuprofen [From Motrin] Allergy Itching Verified 11/20/12 15:54 NSAIDS (Non-Steroidal Allergy Itching Verified 10/23/15 00:05 Anti-Inflamma ED Review of Systems ROS: Stated complaint: AMS Other details as noted in HPI Comment: All other systems reviewed and negative ED Past Medical Hx - Past Medical History Hx Hypertension: Yes Hx Congestive Heart Failure: No Hx Diabetes: No Hx Deep Vein Thrombosis: (Unknown) Hx Psychiatric Treatment: Yes (Bipolar, Schizophrenia, Anxiety) Hx Asthma: No Hx COPD: No Hx HIV: No Additional medical history: Hernia; back pain - Surgical History Hx Pacemaker: No Hx Internal Defibrillator: No Hx Appendectomy: Yes Additional Surgical History: perforated bowel repair October 2014; fx R hip. facial plates placed after jaw fx - Social History Smoking Status: Current Every Day Smoker Substance Use Type: Alcohol - Medications Home Medications: Home Medications Medication Instructions Recorded Confirmed Last Taken Type HYDROcodone/APAP 5-325 [[place] 1 each PO Q6HR PRN #15 tablet 03/04/15 12/07/15 Unknown Rx 5/325] Depakote 0 mg PO DAILY 12/07/15 12/07/15 Unknown History Loperamide [Imodium] 2 mg PO Q2HR PRN #20 capsule 12/07/15 Unknown Rx Quetiapine Fumarate [SEROquel XR] 150 mg PO QDAY 12/07/15 12/07/15 Unknown History hydrOXYzine PAMOATE [Vistaril] 25 mg PO Q6HR PRN 12/07/15 12/07/15 Unknown History lisinopriL [Zestril TAB] 20 mg PO QDAY #30 tablet 12/07/15 Unknown Rx traMADoL [Ultram 50 MG tab] 50 mg PO Q6HR PRN #20 tablet 12/07/15 Unknown Rx Acetaminophen [Acetaminophen 8 650 mg PO Q8H PRN #30 tablet.er 04/21/17 Unknown Rx Hour] Amoxicillin/K Clav Tab [Augmentin 1 tab PO Q12HR #20 tab 04/21/17 Unknown Rx 875 mg] Chlorhexidine Mouthwash [Peridex] 15 ml MM BID 10 Days bottle 04/21/17 Unknown Rx tiZANidine [Zanaflex 4mg TAB] 4 mg PO TID PRN #20 tablet 06/12/17 Unknown Rx traMADoL [Ultram 50 MG tab] 50 mg PO Q6HR PRN #15 tablet 06/12/17 Unknown Rx HYDROcodone/APAP 5-325 [[place] 1 each PO Q8H #10 tablet 12/24/17 Unknown Rx 5-325 mg TAB] Penicillin Vk [Veetids TAB] 250 mg PO QID #28 tablet 12/24/17 Unknown Rx Acetaminophen [Acetaminophen 8 650 mg PO Q8HR PRN #14 tablet.er 12/13/18 Unknown Rx Hour] Penicillin Vk [Veetids TAB] 500 mg PO QID 7 Days #56 tablet 12/13/18 Unknown Rx ED Physical Exam - General Limitations: Altered Mental Status General appearance: alert, in distress - Head Head exam: Present: atraumatic, normocephalic - Eye Eye exam: Present: normal appearance Pupils: Present: normal accommodation - ENT ENT exam: Present: normal exam - Neck Neck exam: Present: normal inspection - Respiratory Respiratory exam: Present: normal lung sounds bilaterally - Cardiovascular Cardiovascular Exam: Present: regular rate, normal rhythm - GI/Abdominal GI/Abdominal exam: Present: soft. Absent: tenderness - Rectal Rectal exam: Present: deferred - Extremities Exam Extremities exam: Present: normal inspection, full ROM. Absent: tenderness, calf tenderness - Neurological Exam Neurological exam: Present: alert, oriented X3, other (somnolent) - Psychiatric Psychiatric exam: Absent: normal affect, normal mood - Skin Skin exam: Present: warm, dry, intact ED Course Vital Signs 03/26/20 12:14 Temperature 98.6 F Pulse Rate 88 Respiratory 16 Rate Blood Pressure 111/75 [Left] O2 Sat by Pulse 97 Oximetry - Reevaluation(s) Reevaluation #1: 03/26/20 12:54 Treated with IVNS and IV narcan without resolution of symptoms. Discussed at length with neurologist. Reevaluation #2: 03/26/20 12:5 03/26/20 12:54 plavix instead of ASA 2/2 allergy ED Medical Decision Making - Lab Data Result diagrams: 03/26/20 11:40 03/26/20 11:40 Labs 03/26/20 03/26/20 03/26/20 11:40 11:40 11:40 WBC 6.6 RBC 4.29 Hgb 12.8 Hct 37.3 MCV 87 MCH 30 MCHC 34 RDW 12.9 L Plt Count 249 Lymph % (Auto) 33.5 [place] % (Auto) 8.6 H Eos % (Auto) 1.3 Baso % (Auto) 1.3 Lymph # (Auto) 2.2 [place] # (Auto) 0.6 Eos # (Auto) 0.1 Baso # (Auto) 0.1 Seg Neutrophils % 55.3 Seg Neutrophils # 3.6 PT 12.8 INR 0.97 APTT 27.8 Thrombin Time 16.7 Sodium 136 L Potassium 3.4 L Chloride 99.6 Carbon Dioxide 28 Anion Gap 12 BUN 12 Creatinine 0.9 Estimated GFR > 60 BUN/Creatinine Ratio 13 Glucose 138 H Calcium 8.9 Troponin T < 0.010 Vital Signs 03/26/20 12:14 Temperature 98.6 F Pulse Rate 88 Respiratory 16 Rate Blood Pressure 111/75 [Left] O2 Sat by Pulse 97 Oximetry - EKG Data -: EKG Interpreted by Me (SR and 89, (-) ST-T changes, normal QRs, (+) APC) - Radiology Data Radiology results: report reviewed Ordering Physician: NICOLETTE SHAH MD Date of Service: 03/26/20 Procedure(s): CT head/brain wo con Accession Number(s): [id number] cc: NICOLETTE SHAH MD CT head/brain wo con INDICATION / CLINICAL INFORMATION: 44 years Male; code stroke symptoms, altered mental status.. TECHNIQUE: Routine CT head without contrast. All CT scans at this location are performed using CT dose reduction for ALARA by means of automated exposure control. COMPARISON: None. FINDINGS: BRAIN / INTRACRANIAL CONTENTS: There appear to be mild periventricular white matter changes which are nonspecific though may reflect microvascular angiopathy. There is scattered calcification, particularly along the falx. However, there is no clear CT evidence of acute intracranial hemorrhage or significant mass effect. ORBITS: No significant abnormality of visualized orbits. SINUSES / MASTOIDS: No significant abnormality in the visualized paranasal sinuses or mastoid air cells. CRANIOCERVICAL JUNCTION: No significant abnormality. ADDITIONAL FINDINGS: None. IMPRESSION: 1. This mild microvascular angiopathy as described without CT ends of acute intracranial hemorrhage. The exam was specified as code stroke and called emergently to Dr. Prasad in the ER at 10:49 AM Central standard time. Signer Name: Yunior Duke MD Signed: 03/26/2020 11:47 AM Workstation Name: [id number] Transcribed By: MR Dictated By: Yunior Duke MD Electronically Authenticated By: Yunior Duke MD Signed Date/Time: 03/26/20 114 DD/ 113 TD/TT: Critical Care Time: Yes (code stroke) Critical care time in (mins) excluding proc time.: 35 Critical care attestation.: If time is entered above; I have spent that time in minutes in the direct care of this critically ill patient, excluding procedure time. ED Disposition Clinical Impression: Encephalopathy acute Disposition: DC-09 OP ADMIT IP TO THIS HOSP Is pt being admited?: Yes Condition: Stable Referrals: PRIMARY CARE, [Primary Care Provider] - 3-5 Days - Level of Consciousness 1a. Level of Consciousness: alert/keenly responsive - LOC Questions 1b. LOC Questions: answers both correctly - LOC Command 1c. LOC Commands: performs tasks correctly - Best Gaze 2. Best Gaze: normal - Visual 3. Visual: no visual loss - Facial Palsy 4. Facial Palsy: normal symmetrical movement - Motor Arm 5a. Motor Arm Left: no drift 5b. Motor Arm Right: no drift - Motor Leg 6a. Motor Leg Left: no drift 6b. Motor Leg Right: no drift - Limb Ataxia 7. Limb Ataxia: absent - Sensory 8. Sensory: normal - Best Language 9. Best Language: no aphasia - Dysarthria 10. Dysarthria: normal - Extinction and Inattention 11. Extinction/Inattention: no abnormality - Scoring Total Score: 0 Stroke Severity: No Stroke Symptoms
--- NOTE | 2020-03-26 11:52 | Cat Scan Report ---
CT head/brain wo con INDICATION / CLINICAL INFORMATION: 44 years Male; code stroke symptoms, altered mental status.. TECHNIQUE: Routine CT head without contrast. All CT scans at this location are performed using CT dos e reduction for ALARA by means of automated exposure control. COMPARISON: None. FINDINGS: BRAIN / INTRACRANIAL CONTENTS: There appear to be mild periventricular white matter changes which are nonspecific though may reflect microvascular angiopathy. There is scattered calcification, particula rly along the falx. However, there is no clear CT evidence of acute intracranial hemorrhage or signif icant mass effect. ORBITS: No significant abnormality of visualized orbits. SINUSES / MASTOIDS: No significant abnormality in the visualized paranasal sinuses or mastoid air darryn ls. CRANIOCERVICAL JUNCTION: No significant abnormality. ADDITIONAL FINDINGS: None. IMPRESSION: 1. This mild microvascular angiopathy as described without CT ends of acute intracranial hemorrhage. The exam was specified as code stroke and called emergently to Dr. Prasad in the ER at 10:49 AM Centr al standard time. Signer Name: Yunior Duke MD Signed: 03/26/2020 11:47 AM Workstation Name: [id number]
[2020-03-26 11:55] LABS: Basophils # (Auto) 0.1 K/mm3 (0.0-0.1); Basophils % (Auto) 1.3 % (0.0-1.8); Eosinophils # (Auto) 0.1 K/mm3 (0.0-0.4); Eosinophils % (Auto) 1.3 % (0.0-4.3); Hematocrit 37.3 % (35.5-45.6); Hemoglobin 12.8 gm/dl (11.8-15.2); Lymphocytes # (Auto) 2.2 K/mm3 (1.2-5.4); Lymphocytes % (Auto) 33.5 % (13.4-35.0); Mean Corpuscular HGB Conc 34 % (32-34); Mean Corpuscular Volume 87 fl (84-94); Monocytes # (Auto) 0.6 K/mm3 (0.0-0.8); Monocytes % (Auto) 8.6 % (0.0-7.3); Platelet Count 249 K/mm3 (140-440); Red Blood Count 4.29 M/mm3 (3.65-5.03); Red Cell Distribution Width 12.9 % (13.2-15.2)
--- NOTE | 2020-03-26 11:56 | Emergency Department Report ---
ED Neuro Deficit HPI - General Chief Complaint: Neuro Symptoms/Deficit Stated Complaint: AMS Time Seen by Provider: 03/26/20 11:48 Source: patient, EMS Mode of arrival: Stretcher Limitations: Altered Mental Status - History of Present Illness Initial Comments: [facility] Date of Service: 03/26/2020 11:18:10 Impression: G92 - Toxic encephalopathy Comments/Sign-Out: 44 year old male who presents to the hospital because of altered mental status. Patient's presentation is non-focal and more consistent with a toxic encephalopathy Metrics: Last Known Well: 03/26/2020 09:00:00 [employer] Notification Time: 03/26/2020 11:17:55 Arrival Time: 03/26/2020 11:19:00 Stamp Time: 03/26/2020 11:18:10 Time First Login Attempt: 03/26/2020 11:21:44 Symptoms: Altered mental status NIHSS Start Assessment Time: 03/26/2020 11:38:00 Patient is not a candidate for Alteplase/Activase. Patient was not deemed candidate for Alteplase/Activase thrombolytics because of Presentation more consistent with a toxic encephalopathy/polypharmacy. . CT head showed no acute hemorrhage or acute core infarct. Clinical Presentation is not Suggestive of Large Vessel Occlusive Disease ED Physician notified of diagnostic impression and management plan on 03/26/2020 11:48:15 Our recommendations are outlined below. Recommendations: Activate Stroke Protocol Admission/Order Set Stroke/Telemetry Floor Neuro Checks Bedside Swallow Eval DVT Prophylaxis IV Fluids, Normal Saline Head of Bed 30 Degrees Euglycemia and Avoid Hyperthermia (PRN Acetaminophen) Routine Consultation with Inhouse Neurology for Follow up Care Sign Out: Discussed with Emergency Department Provider History of Present Illness: Patient is a 44 year old Male. Patient was brought by EMS for symptoms of Altered mental status 44 year old male who presents to the hospital because of lethargy, slurred speech, and altered mental status. Patient was normal this morning but after his morning meds he started to feel different. He normally takes Percocet, Gabapentin, and Depakote in the morning along with his BP meds but today he thinks he accidentally took Seroquel as well which he normally takes at night before bed. Per bedside nurse patient's pupils are pinpoint and sluggish. Per EMS exam there were no focal deficits. They noted the lethargy and slurred speech. Past Medical History: Hypertension Examination: BP(130/76), Pulse(98), Blood Glucose(183) 1A: Level of Consciousness - Arouses to minor stimulation + 1 1B: Ask Month and Age - Both Questions Right + 0 1C: Blink Eyes & Squeeze Hands - Performs Both Tasks + 0 2: Test Horizontal Extraocular Movements - Normal + 0 3: Test Visual Rios - No Visual Loss + 0 4: Test Facial Palsy (Use Grimace if Obtunded) - Normal symmetry + 0 5A: Test Left Arm Motor Drift - No Drift for 10 Seconds + 0 5B: Test Right Arm Motor Drift - No Drift for 10 Seconds + 0 6A: Test Left Leg Motor Drift - No Drift for 5 Seconds + 0 6B: Test Right Leg Motor Drift - No Drift for 5 Seconds + 0 7: Test Limb Ataxia (FNF/Heel-Cook) - No Ataxia + 0 8: Test Sensation - Normal; No sensory loss + 0 9: Test Language/Aphasia - Normal; No aphasia + 0 10: Test Dysarthria - Severe Dysarthria: Unintelligble Slurring or Out of Proportion to Aphasia + 2 11: Test Extinction/Inattention - No abnormality + 0 NIHSS Score: 3 Patient/Family was informed the Neurology Consult would happen via TeleHealth consult by way of interactive audio and video telecommunications and consented to receiving care in this manner. Due to the immediate potential for life-threatening deterioration due to underlying acute neurologic illness, I spent 25 minutes providing critical care. This time includes time for face to face visit via telemedicine, review of medical records, imaging studies and discussion of findings with providers, the patient and/or family. Dr Cate Schultz [facility] Case [id number] - Related Data Home Medications: Home Medications Medication Instructions Recorded Confirmed Last Taken Depakote 0 mg PO DAILY 12/07/15 12/07/15 Unknown Quetiapine Fumarate [SEROquel XR] 150 mg PO QDAY 12/07/15 12/07/15 Unknown hydrOXYzine PAMOATE [Vistaril] 25 mg PO Q6HR PRN 12/07/15 12/07/15 Unknown Previous Rx's Medication Instructions Recorded Last Taken Type HYDROcodone/APAP 5-325 [[place] 1 each PO Q6HR PRN #15 tablet 03/04/15 Unknown Rx 5/325] Loperamide [Imodium] 2 mg PO Q2HR PRN #20 capsule 12/07/15 Unknown Rx lisinopriL [Zestril TAB] 20 mg PO QDAY #30 tablet 12/07/15 Unknown Rx traMADoL [Ultram 50 MG tab] 50 mg PO Q6HR PRN #20 tablet 12/07/15 Unknown Rx Acetaminophen [Acetaminophen 8 650 mg PO Q8H PRN #30 tablet.er 04/21/17 Unknown Rx Hour] Amoxicillin/K Clav Tab [Augmentin 1 tab PO Q12HR #20 tab 04/21/17 Unknown Rx 875 mg] Chlorhexidine Mouthwash [Peridex] 15 ml MM BID 10 Days bottle 04/21/17 Unknown Rx tiZANidine [Zanaflex 4mg TAB] 4 mg PO TID PRN #20 tablet 06/12/17 Unknown Rx traMADoL [Ultram 50 MG tab] 50 mg PO Q6HR PRN #15 tablet 06/12/17 Unknown Rx HYDROcodone/APAP 5-325 [[place] 1 each PO Q8H #10 tablet 12/24/17 Unknown Rx 5-325 mg TAB] Penicillin Vk [Veetids TAB] 250 mg PO QID #28 tablet 12/24/17 Unknown Rx Acetaminophen [Acetaminophen 8 650 mg PO Q8HR PRN #14 tablet.er 12/13/18 Unknown Rx Hour] Penicillin Vk [Veetids TAB] 500 mg PO QID 7 Days #56 tablet 12/13/18 Unknown Rx Allergies/Adverse Reactions: Allergies Allergy/AdvReac Type Severity Reaction Status Date / Time aspirin Allergy Itching Verified 04/16/19 15:32 ibuprofen [From Motrin] Allergy Itching Verified 11/20/12 15:54 NSAIDS (Non-Steroidal Allergy Itching Verified 10/23/15 00:05 Anti-Inflamma ED Review of Systems ROS: Stated complaint: AMS Other details as noted in HPI ED Past Medical Hx - Past Medical History Hx Hypertension: Yes Hx Congestive Heart Failure: No Hx Diabetes: No Hx Deep Vein Thrombosis: (Unknown) Hx Psychiatric Treatment: Yes (Bipolar, Schizophrenia, Anxiety) Hx Asthma: No Hx COPD: No Hx HIV: No Additional medical history: Hernia; back pain - Surgical History Hx Pacemaker: No Hx Internal Defibrillator: No Hx Appendectomy: Yes Additional Surgical History: perforated bowel repair October 2014; fx R hip. facial plates placed after jaw fx - Social History Smoking Status: Current Every Day Smoker Substance Use Type: Alcohol - Medications Home Medications: Home Medications Medication Instructions Recorded Confirmed Last Taken Type HYDROcodone/APAP 5-325 [[place] 1 each PO Q6HR PRN #15 tablet 03/04/15 12/07/15 Unknown Rx 5/325] Depakote 0 mg PO DAILY 12/07/15 12/07/15 Unknown History Loperamide [Imodium] 2 mg PO Q2HR PRN #20 capsule 12/07/15 Unknown Rx Quetiapine Fumarate [SEROquel XR] 150 mg PO QDAY 12/07/15 12/07/15 Unknown History hydrOXYzine PAMOATE [Vistaril] 25 mg PO Q6HR PRN 12/07/15 12/07/15 Unknown History lisinopriL [Zestril TAB] 20 mg PO QDAY #30 tablet 12/07/15 Unknown Rx traMADoL [Ultram 50 MG tab] 50 mg PO Q6HR PRN #20 tablet 12/07/15 Unknown Rx Acetaminophen [Acetaminophen 8 650 mg PO Q8H PRN #30 tablet.er 04/21/17 Unknown Rx Hour] Amoxicillin/K Clav Tab [Augmentin 1 tab PO Q12HR #20 tab 04/21/17 Unknown Rx 875 mg] Chlorhexidine Mouthwash [Peridex] 15 ml MM BID 10 Days bottle 04/21/17 Unknown Rx tiZANidine [Zanaflex 4mg TAB] 4 mg PO TID PRN #20 tablet 06/12/17 Unknown Rx traMADoL [Ultram 50 MG tab] 50 mg PO Q6HR PRN #15 tablet 06/12/17 Unknown Rx HYDROcodone/APAP 5-325 [[place] 1 each PO Q8H #10 tablet 12/24/17 Unknown Rx 5-325 mg TAB] Penicillin Vk [Veetids TAB] 250 mg PO QID #28 tablet 12/24/17 Unknown Rx Acetaminophen [Acetaminophen 8 650 mg PO Q8HR PRN #14 tablet.er 12/13/18 Unknown Rx Hour] Penicillin Vk [Veetids TAB] 500 mg PO QID 7 Days #56 tablet 12/13/18 Unknown Rx ED Neuro Physical Exam - General Limitations: Altered Mental Status Suspected Stroke: No Critical care attestation.: If time is entered above; I have spent that time in minutes in the direct care of this critically ill patient, excluding procedure time. ED Disposition Clinical Impression: Encephalopathy acute Disposition: DC-09 OP ADMIT IP TO THIS HOSP Is pt being admited?: Yes Condition: Stable
[2020-03-26] MEDS ORDERED: NALOXONE 0.4 MG/1 ML INJ IV ONE (12:00)
[2020-03-26 12:03] LABS: INR 0.97 (0.87-1.13)
[2020-03-26 12:04] LABS: Partial Thromboplastin Time 27.8 Sec. (24.2-36.6)
[2020-03-26 12:06] LABS: BUN/Creatinine Ratio 13; Blood Urea Nitrogen 12 mg/dL (9-20); Calcium 8.9 mg/dL (8.4-10.2); Hemolysis Index 9
[2020-03-26 12:11] LABS: Thrombin Time 16.7 Sec. (15.1-19.6)
[2020-03-26] MEDS ORDERED: SODIUM CHLORIDE 0.9% 1000 ML 1,000 ML IV ONE (12:49)
[2020-03-26] MEDS ORDERED: CLOPIDOGREL 75 MG TAB PO ONE (12:56)
[2020-03-26 13:20] LABS: Amphetamine Screen,Urine Negative; Benzodiazepines Screen,Urine Negative; Cannabinoid Screen,Urine Negative; Methadone Screen,Urine Negative; Opiate Screen,Urine Negative
[2020-03-26] MEDS ORDERED: ACETAMINOPHEN 325 MG TAB PO PRN ×2 (13:21)
[2020-03-26] MEDS ORDERED: ONDANSETRON 4 MG/2 ML INJ IV PRN ×2 (13:21)
[2020-03-26] MEDS ORDERED: PROMETHAZINE 25 MG RECT SUPP PR PRN (13:21)
[2020-03-26] MEDS ORDERED: MAGNESIUM HYDROXIDE (MOM) ORAL LIQD UDC PO PRN ×2 (13:21)
[2020-03-26] MEDS ORDERED: METOCLOPRAMIDE 10 MG TAB PO PRN (13:21)
--- NOTE | 2020-03-26 13:30 | History and Physical Report ---
History of Present Illness Date of examination: 03/26/20 Date of admission: 03/26/2020 Chief complaint: Altered mental status History of present illness: 44-year-old -[place] male with known history of bipolar disorder, hypertension, dyslipidemia brought to the emergency room today for altered mental status. Family noted patient to be well until about 7:45 AM today. However patient was found to be altered thereafter. He was said to have taking all his medication earlier this morning. There has been no history of fever or chills, no history of seizure disorder. Most of the history was gotten from the ER staff as patient is not giving any good history at this time. Upon arrival in the emergency room, patient was given some Narcan without any significant improvement in his mental status. Patient was evaluated by the telemetry neurologist and was deemed not to be a TPA candidate. He is to be worked up for toxic encephalopathy and possibly po lypharmacy. Urine drug screen is positive for cocaine. Other Work-up so far including CT scan of the head has been unremarkable. Past History Past Medical History: hypertension, hyperlipidemia, other (Bipolar disorder, schizophrenia, chronic pain) Past Surgical History: appendectomy, total hip replacement (Right hip surgery secondary to fracture), Other (Facial plate secondary to jaw fracture) Social history: smoking, alcohol abuse (Current daily smoker) Family history: no significant family history Medications and Allergies Allergies Allergy/AdvReac Type Severity Reaction Status Date / Time aspirin Allergy Itching Verified 04/16/19 15:32 ibuprofen [From Motrin] Allergy Itching Verified 11/20/12 15:54 NSAIDS (Non-Steroidal Allergy Itching Verified 10/23/15 00:05 Anti-Inflamma Home Medications Medication Instructions Recorded Confirmed Last Taken Type HYDROcodone/APAP 5-325 [[place] 1 each PO Q6HR PRN #15 tablet 03/04/15 12/07/15 Unknown Rx 5/325] Depakote 0 mg PO DAILY 12/07/15 12/07/15 Unknown History Loperamide [Imodium] 2 mg PO Q2HR PRN #20 capsule 12/07/15 Unknown Rx Quetiapine Fumarate [SEROquel XR] 150 mg PO QDAY 12/07/15 12/07/15 Unknown History hydrOXYzine PAMOATE [Vistaril] 25 mg PO Q6HR PRN 12/07/15 12/07/15 Unknown History lisinopriL [Zestril TAB] 20 mg PO QDAY #30 tablet 12/07/15 Unknown Rx traMADoL [Ultram 50 MG tab] 50 mg PO Q6HR PRN #20 tablet 12/07/15 Unknown Rx Acetaminophen [Acetaminophen 8 650 mg PO Q8H PRN #30 tablet.er 04/21/17 Unknown Rx Hour] Amoxicillin/K Clav Tab [Augmentin 1 tab PO Q12HR #20 tab 04/21/17 Unknown Rx 875 mg] Chlorhexidine Mouthwash [Peridex] 15 ml MM BID 10 Days bottle 04/21/17 Unknown Rx tiZANidine [Zanaflex 4mg TAB] 4 mg PO TID PRN #20 tablet 06/12/17 Unknown Rx traMADoL [Ultram 50 MG tab] 50 mg PO Q6HR PRN #15 tablet 06/12/17 Unknown Rx HYDROcodone/APAP 5-325 [[place] 1 each PO Q8H #10 tablet 12/24/17 Unknown Rx 5-325 mg TAB] Penicillin Vk [Veetids TAB] 250 mg PO QID #28 tablet 12/24/17 Unknown Rx Acetaminophen [Acetaminophen 8 650 mg PO Q8HR PRN #14 tablet.er 12/13/18 Unknown Rx Hour] Penicillin Vk [Veetids TAB] 500 mg PO QID 7 Days #56 tablet 12/13/18 Unknown Rx Active Meds: Active Medications Sodium Chloride (Nacl 0.9% 1000 Ml) 1,000 mls @ 999 mls/hr IV BOLUS ONE Stop: 03/26/20 13:49 Last Admin: 03/26/20 12:59 Dose: 999 mls/hr Documented by: Review of Systems Constitutional: no fever, no chills Ears, nose, mouth and throat: no nasal congestion, no sore throat Cardiovascular: no chest pain, no palpitations Respiratory: no cough, no shortness of breath Gastrointestinal: no abdominal pain, no nausea, no vomiting, no diarrhea Genitourinary Male: no dysuria, no hematuria, no flank pain Musculoskeletal: no neck pain, no low back pain Integumentary: no rash, no pruritis Neurological: change in mentation, no weakness, no parathesias, no numbness, no tingling, no seizures, no headaches Psychiatric: no hallucinations, no paranoia Exam - Constitutional Vitals: Temp Pulse Resp BP Pulse Ox 98.6 F 88 16 111/75 97 03/26/20 12:14 03/26/20 12:14 03/26/20 12:14 03/26/20 12:14 03/26/20 12:14 General appearance: Present: no acute distress, well-nourished - EENT Eyes: Present: EOM intact. Absent: scleral icterus ENT: hearing intact, clear oral mucosa, dentition normal - Neck Neck: Present: supple, normal ROM - Respiratory Respiratory effort: normal Respiratory: bilateral: CTA - Cardiovascular Rhythm: regular Heart Sounds: Present: S1 & S2. Absent: gallop, systolic murmur, diastolic murmur, rub, click - Extremities Extremities: no ischemia, pulses intact, pulses symmetrical, No edema, normal temperature, normal color, Full ROM Peripheral Pulses: within normal limits - Abdominal General gastrointestinal: Present: soft, non-tender, non-distended, normal bowel sounds. Absent: mass - Integumentary Integumentary: Present: clear, warm, dry. Absent: rash - Musculoskeletal Musculoskeletal: strength equal bilaterally - Psychiatric Psychiatric: appropriate mood/affect, intact judgment & insight, memory intact, cooperative - Neurologic Neurologic: CNII-XII intact, no focal deficits, moves all extremities HEART Score - HEART Score Troponin: Troponin T < 0.010 ng/mL (0.00-0.029) 03/26/20 11:40 Results - Labs CBC & Chem 7: 03/26/20 11:40 03/26/20 11:40 Labs: Abnormal lab results 03/26/20 03/26/20 Range/Units 11:40 11:40 RDW 12.9 L (13.2-15.2) % [place] % (Auto) 8.6 H (0.0-7.3) % Sodium 136 L (137-145) mmol/L Potassium 3.4 L (3.6-5.0) mmol/L Glucose 138 H (75-100) mg/dL Assessment and Plan - Patient Problems (1) Encephalopathy acute Current Visit: Yes Status: Acute Plan to address problem: Etiology is unclear. Will monitor mental status. Patient to be worked up for toxic encephalopathy. UDS is positive for cocaine. We will also schedule for MRI of the brain. We will place consult to neurology for evaluation. (2) Hypertension Current Visit: No Status: Acute Qualifiers: Hypertension type: essential hypertension Qualified Code(s): I10 - Essential (primary) hypertension Plan to address problem: Vital signs remains stable. We will resume routine home medications once reconciled. (3) Dyslipidemia Current Visit: Yes Status: Acute Plan to address problem: We will monitor lipid profile. (4) Bipolar disorder Current Visit: Yes Status: Acute Plan to address problem: We will resume patient's routine home medications. (5) DVT prophylaxis Current Visit: Yes Status: Acute Plan to address problem: Placed on subcutaneous Lovenox. (6) Full code status Current Visit: Yes Status: Acute Plan to address problem: Patient is a full code.
[2020-03-26] MEDS ORDERED: POTASSIUM CHLORIDE 10 MEQ 10 MEQ/100 ML BAG IV ONE (13:46)
[2020-03-26 14:06] LABS: Cocaine Screen,Urine PRESUMPTIVE POSITIVE
--- NOTE | 2020-03-26 15:31 | Magnetic Resonance Report ---
MR brain wo con INDICATION / CLINICAL INFORMATION: 44 years Male; MAIN. TECHNIQUE: Multiplanar, multisequence MR images of the brain were obtained. COMPARISON: The study is compared to the earlier CT of 03/26/2020. FINDINGS: BRAIN / INTRACRANIAL CONTENTS: On the FLAIR sequence, there are scattered small hyperintense foci inv olving the cerebral white matter most consistent with microvascular angiopathy. The diffusion imaging reveals no evidence of acute infarction. The ventricular system is within normal limits in size and configuration. No extra-axial fluid collections or significant mass effect is identified. CRANIOCERVICAL JUNCTION: No significant abnormality. VASCULAR FLOW-VOIDS: No significant abnormality. ORBITS: No significant abnormality of visualized orbits. SINUSES / MASTOIDS: There is minimal mucosal thickening involving the ethmoid and inferior maxillary sinuses. ADDITIONAL FINDINGS: None. IMPRESSION: 1. There is mild cerebral white matter disease for age which may reflect microvascular angiopathy. Th ere is no evidence of recent infarction. Signer Name: Yunior Duke MD Signed: 03/26/2020 3:27 PM Workstation Name: [id number]
--- NOTE | 2020-03-26 16:04 | Vascular Lab Report ---
VL carotid duplex BILAT INDICATION / CLINICAL INFORMATION: stroke. COMPARISON: None available. FINDINGS: Minimal intimal thickening, but no significant atherosclerotic plaque formation is demonstrated at ei ther bifurcation. Velocity measurements and waveform analysis indicate less than 50% stenosis of each internal carotid artery, according to NASCET criteria. Normal antegrade flow is demonstrated in both vertebral arteries. IMPRESSION: 1. No significant stenosis. Signer Name: Matt Huitron MD Signed: 03/26/2020 4:00 PM Workstation Name: [id number]
[2020-03-26] MEDS ORDERED: ENOXAPARIN 40 MG/0.4 ML INJ SUB-Q SCH (22:00)
[2020-03-27 06:22] LABS: Hematocrit 39.1 % (35.5-45.6); Hemoglobin 13.1 gm/dl (11.8-15.2); Mean Corpuscular HGB Conc 34 % (32-34); Mean Corpuscular Volume 88 fl (84-94); Platelet Count 237 K/mm3 (140-440); Red Blood Count 4.44 M/mm3 (3.65-5.03)
[2020-03-27 06:32] LABS: INR 0.91 (0.87-1.13)
[2020-03-27 07:04] LABS: Total Cells Counted 100
[2020-03-27 07:06] LABS: Platelet Estimate Consistent w Auto
[2020-03-27 07:47] LABS: BUN/Creatinine Ratio 10; Blood Urea Nitrogen 10 mg/dL (9-20); Calcium 8.8 mg/dL (8.4-10.2); HDL Cholesterol 40 mg/dL (40-59); Hemolysis Index 5; LDL Cholesterol,Direct 88 mg/dL (50-130)
--- NOTE | 2020-03-27 08:17 | Consultation ---
History of Present Illness - Reason for Consult Consult date: 03/27/20 Reason for consult: MHE Requesting physician: HONEY PARISI - Chief Complaint Chief complaint: Altered mental status - History of Present Psychiatric Illness Per ED Provider: Patient is a 44-year-old male with past psychiatric history who presents to the emergency department with altered mental status noticed by family shortly after taking his medicine this morning. Patient notes he was his normal self 7:45 AM. Patient presents as code stroke, consequently required my immediate attention. PSYCH HPI Patient is a 44 year old Male who is single, unemployed on SSI and resides with mother with past psychiatric history of schizophrenia who presents to the hospital with stroke like symptoms and altered mental status after taking medications this morning. Patient states he feels great now and more like himself, was at home seated, took his seroquel which he also claims could have been a different medication he took unknowingly, but also said he normally takes 300mg seroquel and self reduced dose to 150mg lately and he may had mistakenly taken the 300mg again which normally makes him drowsy. He denies SI, HI or AVH. Patient describes a good and stable mood, denies being depressed or excessively nervous. Patient eats and sleeps well. Patient denies panic attacks, recurrent nightmares or flashbacks. Patient denies symptoms suggestive of OCD or PTSD. Patient denies hallucinations, paranoia, thought interference and no features suggestive of hypomania or holly. Patiently completely denies suicidal or homicidal thoughts. PAST PSYCHIATRIC HISTORY Diagnoses: schizophrenia Suicide attempts or Self-harm behavior: yes Prior psychiatric hospitalizations: yes Substance Abuse history: none Previous psychiatric medications tried: seroquel Outpatient treatment: yes PAST MEDICAL HISTORY: n/a Family Psychiatric History: None reported or documented SOCIAL HISTORY Marital Status: single Living Arrangements: with mother Employment Status: [employer] Access to guns/weapons: none reported Education: 12th History of Abuse: none Legal History: yes REVIEW OF SYSTEMS Constitutional: Negative for weight loss ENT: Negative for stridor Respiratory: Negative for cough or hemoptysis All other systems reviewed and are negative MENTAL STATUS EXAMINATION General Appearance and Behavior: Age appropriate, good hygiene, wearing appropriate clothes, good eye contact, cooperative polite with questioning. Cooperation: Participating/engaged Psychomotor Behavior: unremarkable and within normal limits Mood: Good Affect and affective range: congruent with mood Thought Process: Fluent/Logical, Thought Content: Within reality, Speech: Normal volume, Regular rate and rhythm, Intellectual Functioning: Average Suicidal Ideation: Denies SI Homicidal Ideation: Denies HI Impulse Control: Unimpaired Insight and Judgment: Normal insight and judgment, Memory: Normal, Attention: Normal, Orientation: Alert, oriented, Diagnoses: Assessment and Plan - Psychiatric problem (1) No abnormality detected on mental health assessment Current Visit: Yes Status: Acute z71.1 (2) Hx of schizophrenia Current Visit: Yes Status: Acute Z86.59 Treatment Plan MEDICATIONS: Risks, benefits and alternatives of medications discussed with the patient, questions answered and consent obtained from patient. PSYCHOTHERAPY: Supportive psychotherapy provided MEDICAL: Per primary team DELIRIUM PRECAUTIONS: Please re-orient patient frequently, keep lights on during the day, and minimize benzodiazepines and opiates as these medications could worsen patient's confusion. DIRECTOR CONTENT MARKETING: DISPOSITION: Do Not Recommend acute inpatient psychiatric hospitalization at th is time. Case discussed with Dr. Greer who agrees with current disposition LEGAL STATUS: voluntary FOLLOW-UP: Will follow if still admited Thank you for the consult. Please contact with any questions and/or concerns. Medications and Allergies Allergies Allergy/AdvReac Type Severity Reaction Status Date / Time aspirin Allergy Itching Verified 04/16/19 15:32 ibuprofen [From Motrin] Allergy Itching Verified 11/20/12 15:54 NSAIDS (Non-Steroidal Allergy Itching Verified 10/23/15 00:05 Anti-Inflamma Home Medications Medication Instructions Recorded Confirmed Last Taken Type AtorvaSTATin [Lipitor] 40 mg PO QHS #30 tablet 03/27/20 Unknown Rx Depakote 500 mg PO DAILY #60 03/27/20 12/07/15 Unknown Rx Quetiapine Fumarate [SEROquel XR] 150 mg PO QHS #30 03/27/20 Unknown Rx Active Meds: Active Medications Acetaminophen (Acetaminophen 325 Mg Tab) 650 mg PO Q4H PRN PRN Reason: Pain MILD(1-3)/Fever >100.5/FRANK Atorvastatin Calcium (Atorvastatin 40 Mg Tab) 40 mg PO QHS [facility] Last Admin: 03/26/20 21:26 Dose: 40 mg Documented by: Bisacodyl (Bisacodyl 10 Mg Rect Supp) 10 mg UT QDAY PRN PRN Reason: Constipation Clopidogrel Bisulfate (Clopidogrel 75 Mg Tab) 75 mg PO QDAY [facility] Enoxaparin Sodium (Enoxaparin 40 Mg/0.4 Ml Inj) 40 mg SUB-Q QDAY@2200 CHRIS; Prot ocol Last Admin: 03/26/20 21:26 Dose: 40 mg Documented by: Lisinopril (Lisinopril 20 Mg Tab) 20 mg PO QDAY [facility] Magnesium Hydroxide (Magnesium Hydroxide (Mom) Oral Liqd Udc) 30 ml PO Q4H PRN PRN Reason: Constipation Metoclopramide HCl (Metoclopramide 10 Mg Tab) 10 mg PO Q6H PRN PRN Reason: Nausea And Vomiting Miscellaneous Medication (Quetiapine Fumarate [Seroquel Xr]) 150 mg PO QDAY [facility] Ondansetron HCl (Ondansetron 4 Mg/2 Ml Inj) 4 mg IV Q8H PRN PRN Reason: Nausea And Vomiting Promethazine HCl (Promethazine 25 Mg Rect Supp) 25 mg UT Q6H PRN PRN Reason: Nausea And Vomiting Sodium Chloride (Sodium Chloride 0.9% 10 Ml Flush Syringe) 10 ml IV BID [facility] Last Admin: 03/26/20 21:26 Dose: 10 ml Documented by: Sodium Chloride (Sodium Chloride 0.9% 10 Ml Flush Syringe) 10 ml IV PRN PRN PRN Reason: LINE FLUSH Sodium Chloride (Sodium Chloride 0.9% 10 Ml Flush Syringe) 10 ml IV PRN PRN PRN Reason: LINE FLUSH Mental Status Exam - Vital signs Last Vital Signs Temp 98.6 F 03/27/20 03:03 Pulse 76 03/27/20 03:03 Resp 16 03/27/20 03:03 BP 118/79 03/27/20 03:03 Pulse Ox 99 03/27/20 03:03 Results Result Diagrams: 03/27/20 05:27 03/27/20 05:27 Abnormal lab results 03/26/20 03/26/20 03/27/20 Range/Units 11:40 11:40 05:27 RDW 12.9 L 13.0 L (13.2-15.2) % [place] % (Auto) 8.6 H (0.0-7.3) % Seg Neuts % (Manual) 34.0 L (40.0-70.0) % Lymphocytes % (Manual) 56.0 H (13.4-35.0) % Monocytes % (Manual) 8.0 H (0.0-7.3) % Seg Neutrophils # Man 1.6 L (1.8-7.7) K/mm3 PT (12.2-14.9) Sec. Sodium 136 L (137-145) mmol/L Potassium 3.4 L (3.6-5.0) mmol/L Glucose 138 H (75-100) mg/dL 03/27/20 03/27/20 Range/Units 05:27 05:27 RDW (13.2-15.2) % [place] % (Auto) (0.0-7.3) % Seg Neuts % (Manual) (40.0-70.0) % Lymphocytes % (Manual) (13.4-35.0) % Monocytes % (Manual) (0.0-7.3) % Seg Neutrophils # Man (1.8-7.7) K/mm3 PT 12.1 L (12.2-14.9) Sec. Sodium (137-145) mmol/L Potassium (3.6-5.0) mmol/L Glucose 103 H (75-100) mg/dL All other labs normal. Assessment and Plan - Psychiatric problem (1) No abnormality detected on mental health assessment Current Visit: Yes Status: Acute (2) Hx of schizophrenia Current Visit: Yes Status: Acute
[2020-03-27 09:01] VITALS: BP 127/71
[2020-03-27] MEDS ORDERED: CLOPIDOGREL 75 MG TAB PO SCH (10:00)
[2020-03-27] MEDS ORDERED: LISINOPRIL 20 MG TAB PO SCH (10:00)
[2020-03-27] MEDS ORDERED: QUETIAPINE FUMARATE 150 MG PO SCH (10:00)
--- NOTE | 2020-03-27 12:05 | Discharge Summary ---
Providers - Providers Date of Admission: 03/26/20 12:50 Date of discharge: 03/27/20 Attending physician: NATHAN JOYA MD 03/26/20 13:22 Consult to Dietitian/Nutrition [CONS] Routine Physician Instructions: Reason For Exam: Reason for Consult: Nutrition Recommendations Reason for Consult: Diet education Occupational Therapy Evaluate and Treat [CONS] Routine Comment: Reason For Exam: Neuro deficits Physical Therapy Evaluation and Treat [CONS] Routine Comment: Reason For Exam: Neuro deficits 03/26/20 13:48 Consult to Physician [CONS] Routine Comment: Consulting Provider: NINA SHRESTHA Physician Instructions: Reason For Exam: Altered mental status,R/O CVA. 03/26/20 13:49 Consult to Mental Health [CONS] Routine Reason For Exam: Altered mental status, H/O Bipolar Disorder. Primary care physician: SALES REVIEW CLERK Hospitalization Reason for admission: Acute encephalopathy Condition: Good Hospital course: 44-year-old -[place] male with a past medical history as below who presented with acute encephalopathy. Patient was brought to [facility] for evaluation. It was thought that the patient had a stroke, CT of the brain was unremarkable, MRI of the brain was also unremarkable. Upon further history, after the patient's encephalopathy resolved, it was found that patient took too much Seroquel instead of taking 150 mg at night, he took 300 mg during the day. Upon seeing the patient, all his symptoms resolved, he was walking around the room and was stable for discharge. Disposition: TO HOME OR SELFCARE - Discharge Diagnoses (1) Encephalopathy acute Status: Acute (2) Bipolar disorder Status: Acute Qualifiers: Active/Remission status: in full remission (3) Dyslipidemia Status: Chronic (4) Hx of schizophrenia Status: Chronic (5) Hypertension Status: Chronic Qualifiers: Hypertension type: essential hypertension Qualified Code(s): I10 - Essential (primary) hypertension Core Measure Documentation - Palliative Care Palliative Care/ Comfort Measures: Not Applicable - Core Measures Any of the following diagnoses?: none - VTE Discharge Requirements Deep Vein Thrombosis/Pulmonary Embolism Present on Admission: No Exam - Physical Exam Narrative exam: General appearance: Present: no acute distress, well-nourished - EENT Eyes: Present: PERRL, EOM intact ENT: hearing intact, clear oral mucosa - Respiratory Respiratory effort: normal Respiratory: bilateral: CTA, negative: rales, rhonchi, wheezing - Cardiovascular Rhythm: regular Heart Sounds: Present: S1 & S2. Absent: rub, click - Extremities Extremities: no ischemia, No edema, normal temperature, normal color, Full ROM - Abdominal General gastrointestinal: soft, non-tender, non-distended, normal bowel sounds - Integumentary Integumentary: Present: clear, warm, dry, normal turgor - Neurologic Neurologic: CNII-XII intact, no focal deficits, moves all extremities - Constitutional Vitals: Temp Pulse Resp BP Pulse Ox 97.1 F L 71 18 127/71 97 03/27/20 08:58 03/27/20 08:58 03/27/20 08:58 03/27/20 08:58 03/27/20 08:58 Plan Follow up with: PRIMARY CARE, [Primary Care Provider] - 3-5 Days Prescriptions: AtorvaSTATin [Lipitor] 40 mg PO QHS #30 tablet Quetiapine Fumarate [SEROquel XR] 150 mg PO QHS #30
--- NOTE | 2020-03-27 14:43 | Consultation ---
History of Present Illness Consult date: 03/27/20 Reason for Consult: AMS, r/o CVA Chief complaint: "I took the Seroquel instead of the Gabapentin and I was off" History of present illness: 44 yo male with htn, hld, schizophrenia, bipolar d/o, chornic pain syndrome, n otes he took seroquel instead of gabapentin in the morning and felt lethargic with slurred speech and difficulty with his vision. Notes he is back to his baseline at present. Deneis any other neurologic symptoms at present. Past History Past Medical History: hypertension, hyperlipidemia, other (see HPI;) Past Surgical History: appendectomy, total hip replacement (Right hip surgery secondary to fracture), Other (Facial plate secondary to jaw fracture) Social history: smoking, alcohol abuse (Current daily smoker) Family history: no significant family history Medications and Allergies Allergies Allergy/AdvReac Type Severity Reaction Status Date / Time aspirin Allergy Itching Verified 04/16/19 15:32 ibuprofen [From Motrin] Allergy Itching Verified 11/20/12 15:54 NSAIDS (Non-Steroidal Allergy Itching Verified 10/23/15 00:05 Anti-Inflamma Home Medications Medication Instructions Recorded Confirmed Last Taken Type AtorvaSTATin [Lipitor] 40 mg PO QHS #30 tablet 03/27/20 Unknown Rx Depakote 500 mg PO DAILY #60 03/27/20 12/07/15 Unknown Rx Quetiapine Fumarate [SEROquel XR] 150 mg PO QHS #30 03/27/20 Unknown Rx Active Meds: Active Medications Acetaminophen (Acetaminophen 325 Mg Tab) 650 mg PO Q4H PRN PRN Reason: Pain MILD(1-3)/Fever >100.5/FRANK Atorvastatin Calcium (Atorvastatin 40 Mg Tab) 40 mg PO QHS [facility] Last Admin: 03/26/20 21:26 Dose: 40 mg Documented by: Bisacodyl (Bisacodyl 10 Mg Rect Supp) 10 mg PA QDAY PRN PRN Reason: Constipation Enoxaparin Sodium (Enoxaparin 40 Mg/0.4 Ml Inj) 40 mg SUB-Q QDAY@2200 [facility]; Protocol Last Admin: 03/26/20 21:26 Dose: 40 mg Documented by: Lisinopril (Lisinopril 20 Mg Tab) 20 mg PO QDAY [facility] Last Admin: 03/27/20 09:34 Dose: 20 mg Documented by: Magnesium Hydroxide (Magnesium Hydroxide (Mom) Oral Liqd Udc) 30 ml PO Q4H PRN PRN Reason: Constipation Metoclopramide HCl (Metoclopramide 10 Mg Tab) 10 mg PO Q6H PRN PRN Reason: Nausea And Vomiting Miscellaneous Medication (Quetiapine Fumarate [Seroquel Xr]) 150 mg PO QDAY CHRIS Ondansetron HCl (Ondansetron 4 Mg/2 Ml Inj) 4 mg IV Q8H PRN PRN Reason: Nausea And Vomiting Promethazine HCl (Promethazine 25 Mg Rect Supp) 25 mg PA Q6H PRN PRN Reason: Nausea And Vomiting Sodium Chloride (Sodium Chloride 0.9% 10 Ml Flush Syringe) 10 ml IV BID [facility] Last Admin: 03/27/20 09:35 Dose: 10 ml Documented by: Sodium Chloride (Sodium Chloride 0.9% 10 Ml Flush Syringe) 10 ml IV PRN PRN PRN Reason: LINE FLUSH Sodium Chloride (Sodium Chloride 0.9% 10 Ml Flush Syringe) 10 ml IV PRN PRN PRN Reason: LINE FLUSH Review of Systems All systems: negative (as per HPI;) Physical Examination - Vital Signs Vital Signs: Vital Signs Pulse Resp Pulse Ox 85 15 96 03/26/20 11:52 03/26/20 11:52 03/26/20 11:52 - Physical Exam Narrative exam: Gen: nad, well-nourished; Head: normocephalic; Eyes: no gaze deviation; no ptosis; ENT: normal vocalization; CVS: warm and well-perfused; Pulm: no respiratory distress; GI: non-distended; Ext: no cyanosis at distal extremities; Skin: no acute rash at distal extremities; Heme: no pathologic bruising at distal extremities; Neuro: alert, oriented to name, age, month, year, surroundings, no dysarthria, no aphasia, CN 2 - PERRL, visual gonzáles intact, CN 3, 4, 6 - EOMI, CN 5 - facial sensation symmetric to light touch, CN 7 - facial movement symmetric, CN 8 - hearing grossly intact, CN 9, 10 - uvula midline, CN 11 - shrug symmetric, CN 12 - tongue midline; Motor - at least 4+/5 in all exts except right proximal (hip) w/ 4-/5; Sensory - light touch symmetric, Cerebellar - fnf /hts intact, Gait - deferred secondary to fall risk; NIHSS (1a.) Level of Consciousness:0 (1b.) LOC Questions:0 (1c.) LOC Commands:0 (2.) Best Gaze:0 (3.) Visual:0 (4.) Facial Palsy:0 (5a.) Motor Arm, Left:0 (5b.) Motor Arm, Right:0 (6a.) Motor Leg, Left:0 (6b.) Motor Leg, Right:0 (7.) Limb Ataxia:0 (8.) Sensory:0 (9.) Best Language:0 (10.) Dysarthria:0 (11.) Extinction and Inattention:0 NIHSS Total Score:0 Results - Laboratory Findings CBC and BMP: 03/27/20 05:27 03/27/20 05:27 Abnormal Lab Findings: Abnormal Labs 03/26/20 03/26/20 03/27/20 11:40 11:40 05:27 RDW 12.9 L 13.0 L [place] % (Auto) 8.6 H Seg Neuts % (Manual) 34.0 L Lymphocytes % (Manual) 56.0 H Monocytes % (Manual) 8.0 H Seg Neutrophils # Man 1.6 L PT Sodium 136 L Potassium 3.4 L Glucose 138 H 03/27/20 03/27/20 05:27 05:27 RDW [place] % (Auto) Seg Neuts % (Manual) Lymphocytes % (Manual) Monocytes % (Manual) Seg Neutrophils # Man PT 12.1 L Sodium Potassium Glucose 103 H Assessment and Plan 44 yo male with htn, hld, schizophrenia, bipolar d/o, chornic pain syndrome, notes he took seroquel instead of gabapentin in the morning and felt lethargic with slurred speech and difficulty with his vision. 1. Toxic Encephalopathy - in the setting of Seroquel use. 2. Patient is cleared by Neurology. Octavio Bhatia MD Neurology
== END 2020-03-27 15:35 | disposition home or self-care (01) ==
LOC: ED 11:19 → 4A 12:50
PROVIDERS: ADMIT Internal Medicine Geriatric Medicine; ATTEND Family Medicine
DX: G93.40 Encephalopathy, unspecified (principal); I10 Essential (primary) hypertension; E78.5 Hyperlipidemia, unspecified; F20.9 Schizophrenia, unspecified; F41.9 Anxiety disorder, unspecified; F17.200 Nicotine dependence, unspecified, uncomplicated; F31.9 Bipolar disorder, unspecified; R29.703 NIHSS score 3; Z90.49 Acquired absence of other specified parts of digestive tract; Z98.890 Other specified postprocedural states; Z79.82 Long term (current) use of aspirin; Z86.59 Personal history of other mental and behavioral disorders; Z79.899 Other long term (current) drug therapy
CPT/HCPCS: 36415; 70450; 70551; 80048; 80061; 80307; 84484; 85025; 85610; 85670; 85730; 93005; 93306; 93880; 96361; 96372; 96374; 97162; 97165; 99291; A9270; G0378; J1650; J2310; J3480; J7030; 80320; 85007; G0480

== ENCOUNTER 2020-08-01 15:13 | Emergency (ER) | payer MEDICAID ==
--- NOTE | 2020-08-01 16:45 | Event Note ---
ED Screening Note Date of service: 08/01/20 Time: 16:41 ED Screening Note: 44-year-old male patient with history of hypertension presents to the emergency department with complaints of traumatic chest pain, left shoulder pain, and right knee pain. Patient states he fell down approximately 5 stairs at 1:00 this morning. He was reportedly unable to stand after his fall and he laid on the ground at the bottom of the staircase for over 12 hours until his son found him. He has been nonambulatory since the fall. Hypertensive in triage. General: Awake, appropriately interactive, no acute distress. Neck: Supple. Full range of motion intact. Cardiovascular: Normal peripheral perfusion. Left chest wall tenderness. Pulmonary: No respiratory distress. Patient is speaking normally without use of accessory muscles. Skin: No apparent rashes or lesions. Neurological: No facial asymmetry. Speech is clear. Follows commands. Patient is alert and oriented. Musculoskeletal: Left shoulder tenderness with limited range of motion. Right knee tenderness. Psych: Cooperative. Appropriate mood and affect. Initial x-rays ordered; decision to obtain further imaging deferred to additional ED providers following complete history and comprehensive trauma exam. I have greeted and performed a focused rapid initial assessment of this patient. A comprehensive ED assessment and evaluation of the patient, analysis of all test results, and completion of the medical decision-making process will be conducted by additional ED providers. This initial assessment/diagnostic orders/clinical plan/treatment(s) is/are subject to change based on patients health status, clinical progression and re-assessment. Further treatment and workup at subsequent clinical provider's discretion. Patient/guardian urged not to elope from the ED as their condition may be serious if not clinically assessed and managed.
[2020-08-01 17:02] LABS: Basophils # (Auto) 0.1 K/mm3 (0.0-0.1); Basophils % (Auto) 0.7 % (0.0-1.8); Eosinophils % (Auto) 0.3 % (0.0-4.3); Lymphocytes # (Auto) 1.3 K/mm3 (1.2-5.4); Lymphocytes % (Auto) 12.8 % (13.4-35.0); Mean Corpuscular HGB Conc 34 % (32-34); Mean Corpuscular Volume 88 fl (84-94); Monocytes # (Auto) 1.3 K/mm3 (0.0-0.8); Monocytes % (Auto) 12.4 % (0.0-7.3); Platelet Count 291 K/mm3 (140-440); Red Blood Count 4.65 M/mm3 (3.65-5.03); Red Cell Distribution Width 12.9 % (13.2-15.2)
[2020-08-01 17:26] LABS: Alanine Aminotransferase 12 units/L (7-56); Albumin 4.7 g/dL (3.9-5); BUN/Creatinine Ratio 9; Blood Urea Nitrogen 9 mg/dL (9-20); Calcium 9.3 mg/dL (8.4-10.2); Hemolysis Index 6
--- NOTE | 2020-08-01 17:53 | XRay Report ---
Right knee 3 views INDICATION: Fall FINDINGS: Alignment appears normal. Mild tricompartmental degenerative change. No acute fracture. IMPRESSION: No acute findings. Left shoulder 3 views INDICATION: Fall FINDINGS: There is glenohumeral and AC degenerative change with joint space narrowing. No acute fract ure or dislocation. IMPRESSION: No acute findings. Signer Name: Randolph Subramanian MD Signed: 08/01/2020 5:49 PM Workstation Name: [id number]
--- NOTE | 2020-08-01 17:53 | XRay Report ---
Right knee 3 views INDICATION: Fall FINDINGS: Alignment appears normal. Mild tricompartmental degenerative change. No acute fracture. IMPRESSION: No acute findings. Left shoulder 3 views INDICATION: Fall FINDINGS: There is glenohumeral and AC degenerative change with joint space narrowing. No acute fract ure or dislocation. IMPRESSION: No acute findings. Signer Name: Randolph Subramanian MD Signed: 08/01/2020 5:49 PM Workstation Name: [id number]
--- NOTE | 2020-08-01 18:11 | XRay Report ---
CHEST 1 VIEW INDICATION / CLINICAL INFORMATION: chest pain s/p fall. COMPARISON: None available. FINDINGS: SUPPORT DEVICES: None. HEART / MEDIASTINUM: No significant abnormality. LUNGS / PLEURA: No significant pulmonary or pleural abnormality. No pneumothorax. ADDITIONAL FINDINGS: No acute skeletal abnormality. IMPRESSION: 1. No acute findings. Signer Name: Madelyn Lopez MD Signed: 08/01/2020 6:06 PM Workstation Name: [id number]
[2020-08-01] MEDS ORDERED: HYDROcodone/ACETAMINOPHEN 5-325 MG TAB PO ONE (19:27)
--- NOTE | 2020-08-01 19:38 | Emergency Department Report ---
ED Fall HPI - General Chief Complaint: Fall Stated Complaint: FALL/LEFT RT KNEE Time Seen by Provider: 08/01/20 19:19 Source: patient Mode of arrival: Wheelchair - History of Present Illness Initial Comments: Patient is a 44-year-old male presents emergency room complaints of a fall that occurred around 1 AM this morning. He states he was going down the steps and fell down approximately 3-4 steps. He states that he had to wait till his son got up to help him up. He states his son woke up around 7 AM. He is complaining of left shoulder pain, left lateral chest pain which he appears to be pointing in the region of the latismus dorsi, right knee pain. He states he has not been ambulatory secondary to his knee pain. He denies hitting his head, loss of consciousness, vomiting, vision changes, numbness, weakness, bowel or bladder incontinence, any other injury. Past medical history of hypertension, schizophrenia, bipolar, hernia, bowel surgery. States he has an allergy to NSAIDs. - Related Data Previous Rx's Medication Instructions Recorded Last Taken Type AtorvaSTATin [Lipitor] 40 mg PO QHS #30 tablet 03/27/20 Unknown Rx Depakote 500 mg PO DAILY #60 03/27/20 Unknown Rx Quetiapine Fumarate [SEROquel XR] 150 mg PO QHS #30 03/27/20 Unknown Rx Acetaminophen [Tylenol] 650 mg PO Q8HR PRN #20 capsule 08/01/20 Unknown Rx methOCARBAMOL [Robaxin TAB] 500 mg PO BID PRN #20 tab 08/01/20 Unknown Rx Allergies Allergy/AdvReac Type Severity Reaction Status Date / Time aspirin Allergy Itching Verified 04/16/19 15:32 ibuprofen [From Motrin] Allergy Itching Verified 11/20/12 15:54 NSAIDS (Non-Steroidal Allergy Itching Verified 10/23/15 00:05 Anti-Inflamma ED Review of Systems ROS: Stated complaint: FALL/LEFT RT KNEE Other details as noted in HPI Comment: All other systems reviewed and negative ED Past Medical Hx - Past Medical History Previous Medical History?: Yes Hx Hypertension: Yes Hx Congestive Heart Failure: No Hx Diabetes: No Hx Deep Vein Thrombosis: (Unknown) Hx Psychiatric Treatment: Yes (Bipolar, Schizophrenia, Anxiety) Hx Asthma: No Hx COPD: No Hx HIV: No Additional medical history: Hernia; back pain - Surgical History Hx Pacemaker: No Hx Internal Defibrillator: No Hx Appendectomy: Yes Additional Surgical History: perforated bowel repair October 2014; fx R hip. facial plates placed after jaw fx - Social History Smoking Status: Current Every Day Smoker - Medications Home Medications: Home Medications Medication Instructions Recorded Confirmed Last Taken Type AtorvaSTATin [Lipitor] 40 mg PO QHS #30 tablet 03/27/20 Unknown Rx Depakote 500 mg PO DAILY #60 03/27/20 12/07/15 Unknown Rx Quetiapine Fumarate [SEROquel XR] 150 mg PO QHS #30 03/27/20 Unknown Rx Acetaminophen [Tylenol] 650 mg PO Q8HR PRN #20 capsule 08/01/20 Unknown Rx methOCARBAMOL [Robaxin TAB] 500 mg PO BID PRN #20 tab 08/01/20 Unknown Rx ED Physical Exam - General Limitations: No Limitations General appearance: alert, in no apparent distress - Head Head exam: Present: atraumatic, normocephalic - Eye Eye exam: Present: normal appearance, PERRL, EOMI. Absent: periorbital swelling, periorbital tenderness Pupils: Present: normal accommodation - ENT ENT exam: Present: mucous membranes moist - Neck Neck exam: Present: normal inspection, full ROM. Absent: tenderness, meningismus - Respiratory Respiratory exam: Present: normal lung sounds bilaterally, other (no chest wall ttp, no ecchymosis, no edema, no crepitus). Absent: respiratory distress, wheezes, rales, rhonchi, stridor, chest wall tenderness, accessory muscle use, decreased breath sounds, prolonged expiratory - Cardiovascular Cardiovascular Exam: Present: regular rate, normal rhythm, normal heart sounds. Absent: systolic murmur, diastolic murmur, rubs, gallop - Extremities Exam Extremities exam: Present: tenderness (ttp to the right anterior knee, no edema, no ecchymosis, no deformity, FROM of the RLE with pain upon full flexion of the knee, no obvious joint laxity, neurovascularly intact throughout with strong distal pulses in all extremities), other (ttp to the left anterior shoulder, no edema, no ecchymosis, no deformity, FROM of the LUE with pain upon full flexion, no sulcus sign, clavicles are equal, no clavicular ttp, pain with raising the arm causing pain in the latismus dorsi, no ecchymosis, no edema, no crepitus, no winging of the scapula) - Back Exam Back exam: Present: normal inspection, full ROM. Absent: paraspinal tenderness, vertebral tenderness - Neurological Exam Neurological exam: Present: alert, oriented X3, CN II-XII intact, normal gait. Absent: motor sensory deficit - Psychiatric Psychiatric exam: Present: normal affect, normal mood - Skin Skin exam: Present: warm, dry, intact ED Course Vital Signs 08/01/20 08/01/20 08/01/20 16:27 19:31 19:54 Temperature 99.2 F 98.2 F Pulse Rate 89 86 Respiratory 24 19 16 Rate Blood Pressure 185/96 156/83 [Right] O2 Sat by Pulse 100 100 Oximetry 08/01/20 19:57 Temperature Pulse Rate Respiratory 16 Rate Blood Pressure [Right] O2 Sat by Pulse Oximetry ED Medical Decision Making - Lab Data Result diagrams: 08/01/20 16:47 08/01/20 16:47 Lab Results 08/01/20 08/01/20 Range/Units 16:47 16:47 WBC 10.3 (4.5-11.0) K/mm3 RBC 4.65 (3.65-5.03) M/mm3 Hgb 14.0 (11.8-15.2) gm/dl Hct 41.0 (35.5-45.6) % MCV 88 (84-94) fl MCH 30 (28-32) pg MCHC 34 (32-34) % RDW 12.9 L (13.2-15.2) % Plt Count 291 (140-440) K/mm3 Lymph % (Auto) 12.8 L (13.4-35.0) % [place] % (Auto) 12.4 H (0.0-7.3) % Eos % (Auto) 0.3 (0.0-4.3) % Baso % (Auto) 0.7 (0.0-1.8) % Lymph # (Auto) 1.3 (1.2-5.4) K/mm3 [place] # (Auto) 1.3 H (0.0-0.8) K/mm3 Eos # (Auto) 0.0 (0.0-0.4) K/mm3 Baso # (Auto) 0.1 (0.0-0.1) K/mm3 Seg Neutrophils % 73.8 H (40.0-70.0) % Seg Neutrophils # 7.6 (1.8-7.7) K/mm3 Sodium 134 L (137-145) mmol/L Potassium 3.9 (3.6-5.0) mmol/L Chloride 94.1 L (98-107) mmol/L Carbon Dioxide 25 (22-30) mmol/L Anion Gap 19 mmol/L BUN 9 (9-20) mg/dL Creatinine 1.0 (0.8-1.3) mg/dL Estimated GFR > 60 ml/min BUN/Creatinine Ratio 9 % Glucose 106 H (75-100) mg/dL Calcium 9.3 (8.4-10.2) mg/dL Magnesium 2.40 H (1.7-2.3) mg/dL Total Bilirubin 0.30 (0.1-1.2) mg/dL AST 17 (5-40) units/L ALT 12 (7-56) units/L Alkaline Phosphatase 70 (35-129) units/L Total Creatine Kinase 270 H (55-170) units/L Total Protein 7.3 (6.3-8.2) g/dL Albumin 4.7 (3.9-5) g/dL Albumin/Globulin Ratio 1.8 % Vital Signs 08/01/20 08/01/20 08/01/20 16:27 19:31 19:54 Temperature 99.2 F 98.2 F Pulse Rate 89 86 Respiratory 24 19 16 Rate Blood Pressure 185/96 156/83 [Right] O2 Sat by Pulse 100 100 Oximetry 08/01/20 19:57 Temperature Pulse Rate Respiratory 16 Rate Blood Pressure [Right] O2 Sat by Pulse Oximetry - EKG Data EKG shows normal: sinus rhythm, axis, intervals, QRS complexes, ST-T waves Rate: normal - EKG Data 08/01/20 19:46 left atrial enlargement no STEMI - Radiology Data Radiology results: report reviewed Ordering Physician: MONIQUE RAMSEY Date of Service: 08/01/20 Procedure(s): XR shoulder 2+V LT Accession Number(s): [id number] cc: MONIQUE RAMSEY Fluoro Time In Minutes: Right knee 3 views INDICATION: Fall FINDINGS: Alignment appears normal. Mild tricompartmental degenerative change. No acute fracture. IMPRESSION: No acute findings. Left shoulder 3 views INDICATION: Fall FINDINGS: There is glenohumeral and AC degenerative change with joint space narrowing. No acute fracture or dislocation. IMPRESSION: No acute findings. Signer Name: Randloph Subramanian MD Signed: 08/01/2020 5:49 PM Workstation Name: [id number] Transcribed By: MARVIN Dictated By: ABHIJIT SUBRAMANIAN MD Electronically Authenticated By: ABHIJIT SUBRAMANIAN MD Signed Date/Time: 08/01/201748 DD/ 47 TD/TT: Ordering Physician: MONIQUE RAMSEY Date of Service: 08/01/20 Procedure(s): XR knee 3V RT Accession Number(s): [id number] cc: MONIQUE RAMSEY Fluoro Time In Minutes: Right knee 3 views INDICATION: Fall FINDINGS: Alignment appears normal. Mild tricompartmental degenerative change. No acute fracture. IMPRESSION: No acute findings. Left shoulder 3 views INDICATION: Fall FINDINGS: There is glenohumeral and AC degenerative change with joint space narrowing. No acute fracture or dislocation. IMPRESSION: No acute findings. Signer Name: Randolph Subramanian MD Signed: 08/01/2020 5:49 PM Workstation Name: [id number] Transcribed By: MARVIN Dictated By: ABHIJIT SUBRAMANIAN MD Electronically Authenticated By: BAHIJIT SUBRAMANIAN MD Signed Date/Time: 08/01/201748 DD/ 47 TD/TT: Ordering Physician: MONIQUE RAMSEY Date of Service: 08/01/20 Procedure(s): XR chest 1V ap Accession Number(s): [id number] cc: MONIQUE RAMSEY Fluoro Time In Minutes: CHEST 1 VIEW INDICATION / CLINICAL INFORMATION: chest pain s/p fall. COMPARISON: None available. FINDINGS: SUPPORT DEVICES: None. HEART / MEDIASTINUM: No significant abnormality. LUNGS / PLEURA: No significant pulmonary or pleural abnormality. No pneumothorax. ADDITIONAL FINDINGS: No acute skeletal abnormality. IMPRESSION: 1. No acute findings. Signer Name: Madelyn Lopez MD Signed: 08/01/2020 6:06 PM Workstation Name: [id number] Transcribed By: DT Dictated By: Tavares Lopez MD Electronically Authenticated By: Tavares Lopez MD Signed Date/Time: 08/01/201805 DD/ 05 TD/TT: - Medical Decision Making Patient is a 44-year-old male presents emergency room complaints of a fall that occurred around 1 AM this morning. He states he was going down the steps and fell down approximately 3-4 steps. He states that he had to wait till his son got up to help him up. He states his son woke up around 7 AM. He is complaining of left shoulder pain, left lateral chest pain which he appears to be pointing in the region of the latismus dorsi, right knee pain. He states he has not been ambulatory secondary to his knee pain. He denies hitting his head, loss of consciousness, vomiting, vision changes, numbness, weakness, bowel or bladder incontinence, any other injury. Past medical history of hypertension, schizophrenia, bipolar, hernia, bowel surgery. States he has an allergy to NSAIDs. Vitals are stable. On exam:ttp to the left anterior shoulder, no edema, no ecchymosis, no deformity, FROM of the LUE with pain upon full flexion, no sulcus sign, clavicles are equal, no clavicular ttp, pain with raising the arm causing pain in the latismus dorsi, no ecchymosis, no edema, no crepitus, no winging of the scapula, ttp to the right anterior knee, no edema, no ecchymosis, no deformity, FROM of the RLE with pain upon full flexion of the knee, no obvious joint laxity, neurovascularly intact throughout with strong distal pulses in all extremities. He reports his pain is mostly in his shoulder. Orders placed prior to my examination. Labs are stable. EKG with left atrial enlargement, otherwise normal. X-rays ordered with no acute proce ss. Discussed all results with patient. Patient placed in Benjie wrap to the right knee by nurse under my neurovascular intact, patient given crutches. Discussed the importance of orthopedic follow-up. Patient given prescription for medications. Advised patient Please take medication as prescribed as needed. May use ice pack, heating pad, rest, epsom salt bath. Follow-up with orthopedic doctor. Follow-up with a primary care doctor. return to emergency room for any new or worsening symptoms. Critical care attestation.: If time is entered above; I have spent that time in minutes in the direct care of this critically ill patient, excluding procedure time. ED Disposition Clinical Impression: Left anterior shoulder pain Fall Qualifiers: Encounter type: initial encounter Qualified Code(s): W19.XXXA - Unspecified fall, initial encounter Right knee pain Qualifiers: Chronicity: acute Qualified Code(s): M25.561 - Pain in right knee Strain of latissimus dorsi muscle Qualifiers: Encounter type: initial encounter Qualified Code(s): S29.012A - Strain of muscle and tendon of back wall of thorax, initial encounter Disposition: TO HOME OR SELFCARE Is pt being admited?: No Does the pt Need Aspirin: No Condition: Stable Instructions: Musculoskeletal Pain Additional Instructions: Please take medication as prescribed as needed. May use ice pack, heating pad, rest, epsom salt bath. Follow-up with orthopedic doctor. Follow-up with a primary care doctor. return to emergency room for any new or worsening symptoms. Prescriptions: methOCARBAMOL [Robaxin TAB] 500 mg PO BID PRN #20 tab PRN Reason: muscle spasm/pain Acetaminophen [Tylenol] 650 mg PO Q8HR PRN #20 capsule PRN Reason: pain Referrals: PRIMARY MD SADIE [Primary Care Provider] - 2-3 Days ANA LUISA GONZALES MD [Staff Physician] - 2-3 Days Time of Disposition: 19:40 Print Language: MALAWIAN
[2020-08-01 19:55] VITALS: BP 156/83
--- NOTE | 2020-08-05 09:47 | Electrocardiograph Report ---
[facility] Test Date: 2020-08-01 Test Time: 16:17:33 Pat Name: WAGNER MARTINES Department: Room: Gender: M Gold Beater: NERY : 1975 Requested By: NOELLE ALLEN Order Number: [id number] Reading MD: Azar Anderson Measurements Intervals [place] Rate: 84 P: 71 CT: 197 QRS: 25 QRSD: 85 T: 47 QT: 369 QTc: 437 Interpretive Statements Sinus rhythm Left atrial enlargement No previous ECG available for comparison Electronically Signed On 08-05-2020 9:47:38 EDT by Azra Anderson
== END 2020-08-01 19:59 | disposition home or self-care (01) ==
LOC: ED 15:13
DX: S29.012A Strain of muscle and tendon of back wall of thorax, initial encounter (principal); M25.512 Pain in left shoulder; M25.561 Pain in right knee; I10 Essential (primary) hypertension; F31.9 Bipolar disorder, unspecified; F20.9 Schizophrenia, unspecified; F17.200 Nicotine dependence, unspecified, uncomplicated; Z90.49 Acquired absence of other specified parts of digestive tract; Z98.890 Other specified postprocedural states; Z79.899 Other long term (current) drug therapy; Z88.8 Allergy status to other drugs, medicaments and biological substances; W10.9XXA Fall (on) (from) unspecified stairs and steps, initial encounter; Y93.89 Activity, other specified; Y92.89 Other specified places as the place of occurrence of the external cause; Y99.8 Other external cause status
CPT/HCPCS: 36415; 71045; 80053; 82550; 83735; 85025; 93005